=== PATIENT | male | born 1990 | race Caucasian/White ===

== ENCOUNTER 2018-11-13 14:33 | Outpatient (REF) | payer MEDICAID, SELFPAY ==
[2018-11-13 21:37] LABS: HCT 39.2 % (40.0-50.0); Mean Corp. HGB Concentration 33.2 g/dL (32.0-36.0); Mean Corpuscular Hemoglobin 30.3 pg (27.0-33.0); Mean Corpuscular Volume 91.4 fL (80-95); Mean Platelet Volume 10.4 fL (8.0-11.0); Platelet Count 253 x1000/uL (130-400); RBC 4.29 m/cumm (4.50-6.00); RBC Distribution Width 13.7 % (11.8-14.1)
[2018-11-13 21:46] LABS: ALT 21 U/L (12-78); AST 16 U/L (15-37); Albumin 3.5 g/dL (3.4-5.0); Alkaline Phosphatase 83 U/L (46-116); BUN 10 mg/dL (7-18); Bilirubin, Total 0.2 mg/dL (0.2-1.0); CREATININE 0.89 mg/dL (0.70-1.30); Calcium 8.7 mg/dL (8.5-10.1); Chloride 102 mmol/L (98-107); Glucose 120 mg/dL (70-100); Potassium 4.4 mmol/L (3.5-5.1); Sodium 139 mmol/L (136-145); Total Protein 7.2 g/dL (6.4-8.2)
[2018-11-15 11:22] LABS: Hepatitis C Ab w Rflx HCV PCR Reactive (NEGAT)
[2018-11-18 14:57] LABS: HCV RNA Detection Quantitative 104 IU/mL (UNDECT)
== END 2018-11-13 14:53 ==
LOC: NCHCN 14:33
PROVIDERS: PCP Nurse Practitioner Family; Visit Provider Specialist/Technologist Athletic Trainer
DX: Z11.59 Encounter for screening for other viral diseases (principal)
CPT/HCPCS: 80053; 85027; 86803; 87522

== ENCOUNTER 2019-01-24 18:06 | Emergency (ER) | payer MEDICARE, MEDICAID, SELFPAY ==
[2019-01-24 18:11] VITALS: BP 130/83; PULSE 91; RESP 18; TEMP 36.7; O2SAT 96
--- NOTE | 2019-01-24 18:33 | DI.RAD_ITS ---
EXAM: XR CHEST 2V PA LATERAL INDICATION: cough. TECHNIQUE: 2D digital imaging was performed. FINDINGS: A region of infiltration involving the right middle lobe is demonstrated. The lungs are otherwise cl ear. There is no pleural effusion. IMPRESSION: Findings consistent with an acute pneumonitis. Follow-up images to clearing is recommended.
--- NOTE | 2019-01-24 18:34 | W.ED.GENAD ---
Discharge Plan Disposition Patient Disposition: HOME Condition: Stable Discharge Details Chief Complaint: RespSymp Clinical Impression: Pneumonia Primary Care Provider: Galina Webb ED Provider: Jacqueline Saez Home Meds and New Rx's Prescriptions: New doxycycline hyclate 100 mg capsule 100 mg PO BID Qty: 20 RF: 0 albuterol sulfate [Proventil HFA] 90 mcg/actuation HFA aerosol inhaler 2 puff IH Q6H PRN (Reason: shortness of breath or wheezing) Qty: 8.5 RF: 0 benzonatate [Tessalon Perles] 100 mg capsule 100 mg PO BID PRN (Reason: cough) Qty: 10 RF: 0 Continued methadone (bulk) 100 GM powder 120 gm Miscellaneous DAILY RF: 0 albuterol sulfate [Ventolin HFA] 8 GM HFA aerosol inhaler 1 - 2 puff Inhalation Q4H PRN Qty: 1 RF: 1 (DME) inhalational spacing device [Space Chamber Plus] 1 EACH spacer 1 unit Miscellaneous Use with inhaler Qty: 1 RF: 0 azithromycin 250 MG tablet 250 mg PO 2 on day #1 then 1qd Qty: 6 RF: 0 prednisone 20 MG tablet 40 mg PO DAILY Qty: 10 RF: 0 albuterol sulfate 2.5 MG/0.5 ML solution for nebulization 2.5 mg Inhalation Q4H PRN Qty: 30 RF: 3 divalproex [Depakote] 125 MG tablet,delayed release (DR/EC) 2 tab PO DAILY RF: 0 dexmethylphenidate [Focalin XR] 10 MG capsule,ER biphasic 50-50 10 mg PO DAILY RF: 0 penicillin V potassium 500 MG tablet 500 mg PO Q6H Qty: 28 RF: 0 ibuprofen 600 MG tablet 600 mg PO Q6H PRN (Reason: Pain) Qty: 12 RF: 0 Discharge Instructions Instructions: Pneumonia (ED) Additional Instructions: Push fluids by mouth. Rest activities as tolerated. Use antibiotic as prescribed. Use inhaler as prescribed. Cough medication as needed. Follow-up with your primary care doctor in 3 days. Return for any worsening, concerns or alarming symptoms sooner if needed Medical Decision Making 28-year-old patient with a history of drug abuse currently on methadone with a reported history of pulmonary injury and vocal cord injury at . Presents for 2 days of cough, congestion and concern of respiratory infection. Patient reports nasal congestion, sore throat and cough. Denies measured fever. Reports wheezing. Has been using his inhaler but was out yesterday. Patient reports increasing wheezing today without inhaler. Patient ultimately is concerned with possibility of pneumonia. Chest x-ray ordered Chest x-ray does not fact reveal a right middle lobe infiltrate suggestive of pneumonia. Patient did receive 2 DuoNeb's in the emergency room and does feel improved after 2 DuoNeb's. Patient's O2 sat maintained. Patient feels appropriate for outpatient discharge. Patient was given initial dose of doxycycline in the emergency room prior to discharge. Patient also provided prescriptions for doxycycline, inhaler and cough medication. Patient encouraged close follow-up with primary care doctor and return for any alarming symptoms, worsening or concerns sooner if needed HPI General Date/Time Provider Initiated Documentation: 01/24/19 18:23. HPI Narrative: Patient presents for complaints of cough and congestion for the last 2 days. Patient reports nasal congestion, sore throat and coughing. Denies any fever. Patient reports cough with mild production. Out of his inhaler yesterday. Is concerned that he needs a new inhaler. Patient denies abdominal pain. He reports concern as he has chronic right lung issues. Patient is a smoker. Patient denies any other concerns or complaints. No voice change or trismus. Related Data Home Medications Medication Instructions Recorded Confirmed divalproex [Depakote] 2 tab PO DAILY 09/21/13 12/08/16 albuterol sulfate [Ventolin HFA] 1 - 2 puff INHALATION Q4H PRN #1 07/05/15 inhaler inhalational spacing device [Space #1 07/05/15 Chamber Plus] methadone (bulk) 120 gm MISCELLANEOUS DAILY 07/05/15 12/08/16 dexmethylphenidate [Focalin XR] 10 mg PO DAILY 11/18/15 12/08/16 albuterol sulfate 2.5 mg INHALATION Q4H PRN #30 vial 03/31/16 azithromycin 250 mg PO 2 on day #1 then 1qd #6 03/31/16 tab prednisone 40 mg PO DAILY #10 tab-cap 03/31/16 ibuprofen 600 mg PO Q6H PRN #12 tablet 12/08/16 penicillin V potassium 500 mg PO Q6H #28 tablet 12/08/16 albuterol sulfate [Proventil HFA] 2 puff IH Q6H PRN #8.5 gm 01/24/19 benzonatate [Tessalon Perles] 100 mg PO BID PRN #10 cap 01/24/19 doxycycline hyclate 100 mg PO BID #20 cap 01/24/19 Previous Rx's Medication Instructions Recorded ibuprofen 600 mg PO Q6H PRN #12 tablet 12/08/16 penicillin V potassium 500 mg PO Q6H #28 tablet 12/08/16 albuterol sulfate [Proventil HFA] 2 puff IH Q6H PRN #8.5 gm 01/24/19 benzonatate [Tessalon Perles] 100 mg PO BID PRN #10 cap 01/24/19 doxycycline hyclate 100 mg PO BID #20 cap 01/24/19 Allergies Allergy/AdvReac Type Severity Reaction Status Date / Time venom-honey bee Allergy Severe Anaphylaxsi Unverified 01/24/19 18:26 [bee venom (honey bee)] s General Stated Complaint: RespSymp ROXANNA: 4 Review of Systems Review of Systems Narrative: CONSTITUTIONAL: The patient denies fevers, chills. EYES: Denies vision changes, blurry vision, or eye pain. ENT: Denies hearing changes, tinnitus, vertigo, sore throat. CARDIAC: Denies dizziness. Mild right chest pain. RESPIRATORY: Cough with occasional sputum. Mild wheezing. GASTROINTESTINAL: Denies abdominal pain, changes in bowel, vomiting or nausea. GENITOURINARY: Denies dysuria, or frequency of urination. MUSCULOSKELETAL: Denies Joint pain, gait changes. NEUROLOGIC: Denies headaches, Denies focal weakness. Denies numbness. INTEGUMENT: Denies rashes. PSYCHIATRIC: Denies behavior changes. Denies anxiety or depression. ENDOCRINOLOGY: Denies fatigue. PSYCHIATRY: Denies depression, agitation or anxiety [facility] Medical History Asthma Hepatitis C History of sexually transmitted disease Hep C, chlamydia Illiteracy IV drug abuse Mental health disorder Bipolar ?schizophrenia Opiate dependence Tobacco use disorder Surgical History Knee Surgery, Right Family History Mother Diabetes Personal history of malignant neoplasm Spine? Father Substance abuse Alcoholism Diabetes Personal history of malignant neoplasm ??? Sister Mental disorder ADHD, bipolar Brother Mental disorder ADHD, bipolar Social History Smoking/Tobacco Use Status: Current every day Alcohol Intake: current Alcohol Intake frequency: a few times a month Alcohol type: hard liquor Drug use: Current Sobriety Substance use type: marijuana Details: daily marijuana/methadone clinic Do you feel safe in your relationship?: Yes Exam Narrative Exam Narrative: CONST: Thin, in no acute distress. Well hydrated. Alert and alert. HENMT: Head nomocephalic, normal to inspection. Atraumatic. Hearing grossly normal. EYES: General normal appearance. Alignment normal. Eyelids normal. Conjunctiva normal. NECK: Normal visual inspection. FROM. Trachea midline. No Midline tenderness. CHEST: Normal insepection of the chest. RESP: Normal respiratory effort. Speaking full sentences. Cough present. Mild wheezing.. No retractions. CARDIO: No JVD. MUSCULOSKELETAL: Normal Gait. FROM of all extremities. SKIN: Normal. Dry. No rashes. NEURO: Alert and awake. Speech clear. PSYCH: Normal affect. Cooperative. Course Vital Signs Vital signs: Vital Signs Temperature 36.7 C 01/24/19 18:11 Pulse 91 H 01/24/19 18:11 Respiratory Rate 18 01/24/19 18:11 Blood Pressure 130/83 01/24/19 18:11 Pulse Oximetry 96 01/24/19 18:11 Temperature 36.7 C 01/24/19 18:11 Temperature Source Tympanic 01/24/19 18:11 Pulse 91 H 01/24/19 18:11 Respiratory Rate 18 01/24/19 18:11 Blood Pressure 130/83 01/24/19 18:11 Blood Pressure Position Sitting 01/24/19 18:11 Pulse Oximetry 96 01/24/19 18:11 Oxygen Delivery Method Room Air 01/24/19 18:11 Oxygen Flow Rate 0 01/24/19 18:11 Pain Level 9 01/24/19 18:11
[2019-01-24 18:46] VITALS: RESP 8
[2019-01-24] MEDS: Albuterol/Ipratropium 3 ML UPD VIAL UPD (18:46)
[2019-01-24] MEDS: Doxycycline Hyclate 100 MG CAP PO (21:48)
== END 2019-01-24 22:00 | disposition home or self-care (01) ==
PROVIDERS: Emergency Provider Physician Assistant; PCP Nurse Practitioner Family
DX: J18.9 Pneumonia, unspecified organism (principal); F17.210 Nicotine dependence, cigarettes, uncomplicated
CPT/HCPCS: 94640; 99283; 71046; J7620

== ENCOUNTER 2019-05-27 02:41 | Outpatient (CLI) | payer MEDICARE, MEDICAID, SELFPAY | END 2019-05-27 03:01 | PROVIDERS: PCP Nurse Practitioner Family; Visit Provider Nurse Practitioner Family | DX: F11.20 Opioid dependence, uncomplicated (principal); Z79.899 Other long term (current) drug therapy | CPT/HCPCS: 93005; 93010 ==

== ENCOUNTER 2019-12-19 19:47 | Emergency (ER) | payer MEDICARE, MEDICAID, SELFPAY ==
[2019-12-19 19:53] VITALS: BP 131/75; PULSE 115; RESP 20; TEMP 36.8; O2SAT 92
--- NOTE | 2019-12-19 20:15 | DI.RAD_ITS ---
EXAM: XR HAND LT COMPLETE CLINICAL HISTORY: trauma. TECHNIQUE: 2D digital imaging was performed. COMPARISON: ECG EKG from 05/27/2019 FINDINGS: There is a comminuted fracture of the distal aspect of the middle phalanx of the ring finger. The fr acture involves the articular surface. There is some displacement. No additional fractures are iden tified. There is a rounded density in the volar soft tissues of the 4th finger which appears to repr esent a foreign body. IMPRESSION: Comminuted intra-articular fracture of the middle phalanx of the ring finger. DATA REPOSITORY: RADIATION DOSE DELIVERED:
--- NOTE | 2019-12-19 20:23 | W.ED.GENAD ---
Discharge Plan Disposition Patient Disposition: HOME Condition: Good Discharge Details Chief Complaint: Laceration Clinical Impression: Open fracture of finger of left hand, Forehead laceration, Chin laceration, Laceration of lower leg, right Primary Care Provider: Galina Webb ED Provider: Andi Boles Meds and New Rx's Prescriptions: New cephalexin 500 mg tablet 500 mg PO QID Qty: 16 RF: 0 Continued methadone (bulk) 100 GM powder 120 gm Miscellaneous DAILY RF: 0 divalproex [Depakote] 125 MG tablet,delayed release (DR/EC) 2 tab PO DAILY RF: 0 ibuprofen 600 MG tablet 600 mg PO Q6H PRN (Reason: Pain) Qty: 12 RF: 0 gabapentin 300 mg capsule 300 mg PO TID RF: 0 Discharge Instructions Instructions: Laceration (ED), Finger Fracture (ED), Facial Laceration (ED) Additional Instructions: Do not scrub the glue off lacerations to your face. Avoid shaving the chin area until wound healed. Do not put any antibiotic ointment or Vaseline on the glue. Keep your leg laceration clean and dry. You may put antibiotic ointment on that. The sutures in your leg should come out in 10 to 14 days. Your finger has a significant fracture. X-rays suggest foreign body but I was unable to visualize or feel one. Skin has been approximated. You should try to leave the dressing and splint in place until follow-up with orthopedics on Sunday. Their office will contact you in the morning. Take antibiotic as directed to prevent infection. Use acetaminophen or ibuprofen for pain. Keep your hand elevated over the weekend. Return to ED for any signs of infection which include increasing pain, redness, swelling. Pay attention to the tips of your fingers as we discussed and return if any evidence of significant discoloration either duskiness or paleness. Referrals: Noman Claros MD [ [facility] STAFF PHYSICIAN] - Discharge Data Discharge Date/Time-TO BE ENTERED AT DEPARTURE: 12/19/19 22:45 Medical Decision Making Patient presenting with multiple injuries status post falling with his ladder. Contusion and lacerations to the head and face. No loss of consciousness. Neurologically intact. No spinal tenderness. No chest or abdominal tenderness. Does not need CT imaging. Laceration over the right ford without bony tenderness. Left ring finger with injury likely consistent with open fracture. This will need imaging. Tetanus updated. X-ray of the left hand reveals distal fracture of the mid phalanx ring finger into the DIP joint. There also appears to be a spherical foreign body. Case discussed with orthopedics, Dr. Claros, who did review films with me. Recommendations to update tetanus which was done, give 2 g of Ancef. Washout wound and closed skin, chris tape ring and long finger together, follow-up Sunday with him. Continue 5 days of cephalexin. Please see procedure notes. Briefly facial lacerations were fairly superficial. They were cleaned out and skin adhesive was used with good results. Leg laceration once anesthetized and explored reveals laceration down to the tibia. No fracture or foreign body appreciated. Deep suture placed to close periosteum. This ended up approximating the skin well. Required only 3 nylon sutures for closure. Digital block for ring finger done. Wound irrigated out with almost a liter of saline. I am unable to visualize or feel a spherical foreign body. Even with forcep exploration foreign body not discovered. Fracture definitely unstable. Two skin sutures placed to approximate wound. Xeroform dressing applied. Fingers chris taped together. Still seemed somewhat unstable to me so aluminum foam splint placed. IV was established. Antibiotic was given. Toradol was given. Patient sent back for x-ray of tib-fib. Confirmed no fracture or foreign body. Patient discharged with instructions to continue cephalexin, keep hand elevated, keep splint in place until follow-up with orthopedics. Return to ED for any sign of infection, discoloration of fingertips, other concerns or problems. HPI General Mode of arrival: ambulatory. Date/Time Provider Initiated Documentation: 12/19/19 20:08. Limitations to Documentation: no limitations. Information obtained by: patient and RN notes reviewed. HPI Narrative: Patient presents to ED with injury sustained when a ladder he was climbing fell with him on it. He did not actually fall off the ladder. He had locked himself out of his house and was trying to get to an upstairs window. His finger got caught up in the ladder and sustained injury. He has cut on his ford from where it caught the ladder as well. Small laceration and contusion on his head from striking it against a ladder. Never actually hit the ground. Denies loss of consciousness. Denies neck or back pain. Denies difficulty breathing or chest pain. No abdominal pain. No neurologic changes. Unaware of his last tetanus. Denies drugs or alcohol. Is right-hand dominant with injury to the left ring finger. Related Data Home Medications Medication Instructions Recorded Confirmed divalproex [Depakote] 2 tab PO DAILY 09/21/13 12/19/19 methadone (bulk) 120 gm MISCELLANEOUS DAILY 07/05/15 12/19/19 ibuprofen 600 mg PO Q6H PRN #12 tablet 12/08/16 12/19/19 cephalexin 500 mg PO QID #16 tab 12/19/19 gabapentin 300 mg PO TID 12/19/19 12/19/19 Previous Rx's Medication Instructions Recorded ibuprofen 600 mg PO Q6H PRN #12 tablet 12/08/16 cephalexin 500 mg PO QID #16 tab 12/19/19 Allergies Allergy/AdvReac Type Severity Reaction Status Date / Time venom-honey bee Allergy Severe Anaphylaxsi Unverified 01/24/19 18:26 [bee venom (honey bee)] s General Stated Complaint: Laceration ROXANNA: 3 Review of Systems Narrative: As documented in HPI otherwise negative as below. Const: no fever, chills, weakness Resp: no cough, SOB, pleuritic pain CV: no CP, diaphoresis, edema, syncope GI: no abdominal pain, nausea, vomiting, diarrhea Neuro: no headache, numbness, focal weakness, confusion PFSH Medical History Asthma Hepatitis C History of sexually transmitted disease Hep C, chlamydia Illiteracy IV drug abuse Mental health disorder Bipolar ?schizophrenia Opiate dependence Tobacco use disorder Surgical History Knee Surgery, Right Family History Mother Diabetes Personal history of malignant neoplasm Spine? Father Substance abuse Alcoholism Diabetes Personal history of malignant neoplasm ??? Sister Mental disorder ADHD, bipolar Brother Mental disorder ADHD, bipolar Social History Smoking/Tobacco Use Status: Current every day Tobacco Type: cigarettes Alcohol Intake: former Drug use: Daily Substance use type: marijuana Details: daily marijuana/methadone clinic Do you feel safe at home: Yes Do you feel safe in your relationship?: Yes Exam Narrative Exam Narrative: Vitals: Afebrile. A little tachycardic, likely anxiety. Saturations low 90s in smoker. Const: Extremely thin male in NAD. HEENT: NC. Contusion to left side of head. 1 cm superficial laceration above left eyebrow. No facial bony tenderness. 0.5 cm superficial laceration under left chin. Eyes: PERRL and EOMI. Neck: Supple. Trachea midline. No midline posterior C-spine tenderness. Lungs: Normal respiratory effort. No chest wall tenderness. Cor: RRR w/ good radial pulses. GI: Soft. NT/ND. No guarding or rebound. Back: No midline spinal tenderness. Neuro: A+O x 3. Normal speech, mentation, gait. Cranial nerves II - XII grossly intact. No gross motor or sensory deficit. Ext: No tenderness or deformity to the extremities except for left ring finger. This has laceration mid phalanx, radial side. Macerated skin at the base of finger. Tendons appear to be in tact but bony crepitus felt mid phalanx. Sensation intact. 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 Cap refill is good. Skin: Warm and dry. Few minor very superficial lacerations to left scalp. 1 cm shallow laceration above left eyebrow. 0.5 cm shallow laceration chin. 1 cm deep laceration left ring finger. 3 cm laceration to right ford anteriorly. Course Vital Signs Vital signs: Vital Signs Temperature 98.2 F 12/19/19 19:53 Pulse 115 H 12/19/19 19:53 Respiratory Rate 12/19/19 19:53 Blood Pressure 131/75 12/19/19 19:53 Pulse Oximetry 92 L 12/19/19 19:53 Temperature 98.2 F 12/19/19 19:53 Temperature Source Tympanic 12/19/19 19:53 Pulse 115 H 12/19/19 19:53 Respiratory Rate 12/19/19 19:53 Respiratory Effort 12/19/19 19:55 Blood Pressure 131/75 12/19/19 19:53 Pulse Oximetry 92 L 12/19/19 19:53 Oxygen Delivery Method Room Air 12/19/19 19:53 Oxygen Flow Rate 0 12/19/19 19:53 Pain Level 10 12/19/19 19:53 Procedures Laceration Laceration 1: Site: face Side (If applicable): left Size (cm): 1 Description: linear Depth: simple, single layer Pre-repair: wound explored and irrigated extensively Skin layer closed with: other (skin adhesive) Laceration 2: Site: face Side (If applicable): left Size (cm): 0.5 Description: linear Depth: simple, single layer Pre-repair: wound explored and irrigated extensively Skin layer closed with: other (skin adhesive) Laceration 3: Site: lower extremity Side (If applicable): right Size (cm): 3 Description: linear Depth: involves muscle layer Local Anesthetic: Lidocaine 1% and with Epi Amount of anesthesia used (mL): 2.5 Pre-repair: wound explored and irrigated extensively Skin layer closed with: nylon Size (cm): 3-0 Number of sutures: 3 Technique: simple, interrupted Muscle layer closed with: vicryl Size: 6-0 Number of sutures: 1 Laceration 4: Site: hand Side (If applicable): left Size (cm): 1 Description: irregular Depth: simple, single layer Pre-repair: wound explored and irrigated extensively Skin layer closed with: nylon Size (cm): 5-0 Number of sutures: 2 Technique: simple, interrupted Nerve Block Nerve Block 1: Local Anesthetic: Lidocaine 1% Amount of anesthesia used (mL): 3 Side: left Nerve Blocks: digital Procedure Successful: Yes Patient Tolerated Procedure: well Complications: inadequate anesthesia
--- NOTE | 2019-12-19 20:49 | DI.VRAD_ITS ---
PROCEDURE INFORMATION: Exam: XR Left Hand Exam date and time: 12/19/2019 8:40 PM Age: 29 years old Clinical indication: Other: Trauma; Additional info: Fell off ladder, ladder landed on hand TECHNIQUE: Imaging protocol: XR Left hand. Views: 3 or more views. COMPARISON: No relevant prior studies available. FINDINGS: Bones/joints: There is a fracture of the distal aspect of the middle phalanx 4th digit. There is marked comminution and ulnar angulation. There is involvement of the articular surface although grossly the joint space appears intact. There appears to be a radiopaque focus within the soft tissues, possible foreign body. Soft tissues: See Bones/joints finding. IMPRESSION: Comminuted fracture distal aspect middle phalanx 4th digit. Foreign body in the adjacent soft tissues not excludable. Dictated and Authenticated by: Elizabeth Reis MD. Ordering:TUTU Escamilla MD
[2019-12-19] MEDS: Ketorolac 30 MG/ML VIAL IVP (22:02)
[2019-12-19] MEDS: ceFAZolin 2 GM/50 ML BAG IVPB (22:02)
--- NOTE | 2019-12-19 22:33 | DI.RAD_ITS ---
EXAM: XR TIB/FIB RT CLINICAL HISTORY: trauma. TECHNIQUE: 2D digital imaging was performed. COMPARISON: No exams were available for comparison FINDINGS: BONES: No acute fracture is present. No bony destructive lesion is seen. Visualized portion of knee a nd ankle joints are unremarkable. SOFT TISSUE: There is a small amount of air seen in the medial soft tissues of the proximal lower leg . IMPRESSION: Laceration. No evidence of foreign body or fracture. DATA REPOSITORY: RADIATION DOSE DELIVERED:
--- NOTE | 2019-12-19 22:42 | DI.VRAD_ITS ---
PROCEDURE INFORMATION: Exam: XR Right Tibia and Fibula Exam date and time: 12/19/2019 10:32 PM Age: 29 years old Clinical indication: Injury or trauma; Fall; Work related; Initial encounter; Laceration; Lower leg; Right; Without foreign body; Injury date: 12/19/19; Injury details: S/P stiches TECHNIQUE: Imaging protocol: XR Right tibia and fibula. Views: 2 views. COMPARISON: No relevant prior studies available. FINDINGS: Bones/joints: Normal. Soft tissues: Normal. IMPRESSION: No evidence for acute posttraumatic abnormality. Dictated and Authenticated by: Elizabeth Reis MD. Ordering:TUTU Escamilla MD
== END 2019-12-19 22:45 | disposition home or self-care (01) ==
PROVIDERS: Emergency Provider Emergency Medicine; PCP Nurse Practitioner Family
DX: S62.625B Displaced fracture of middle phalanx of left ring finger, initial encounter for open fracture (principal); S01.81XA Laceration without foreign body of other part of head, initial encounter; S81.811A Laceration without foreign body, right lower leg, initial encounter; S00.01XA Abrasion of scalp, initial encounter; W11.XXXA Fall on and from ladder, initial encounter
CPT/HCPCS: 12001; 12011; 12032; 29125; 90471; 96365; 96375; 99284; 73130; 73590; 99282; J0690; J1885

== ENCOUNTER → 2019-12-23 12:23 | Outpatient (BNVA) | payer MEDICARE, MEDICAID, SELFPAY | PROVIDERS: PCP Nurse Practitioner Family; Referring Provider Nurse Practitioner Family; Visit Provider Student in an Organized Health Care Education/Training Program | DX: R69 Illness, unspecified (principal) ==

== ENCOUNTER 2019-12-31 07:38 | Emergency (ER) | payer MEDICARE, MEDICAID, SELFPAY ==
--- NOTE | 2019-12-31 07:44 | NUR.NOTE ---
Pt decided to go to his primary, choose not to come into ER-per registration.Nursing Note:
== END 2019-12-31 07:45 | disposition other institution (70) ==
LOC: ER 07:43
PROVIDERS: PCP Nurse Practitioner Family
DX: Z53.21 Procedure and treatment not carried out due to patient leaving prior to being seen by health care provider (principal)

== ENCOUNTER 2020-01-11 16:14 | Emergency (ER) | payer MEDICARE, MEDICAID, SELFPAY ==
[2020-01-11 16:21] VITALS: BP 129/78; PULSE 95; RESP 16; TEMP 36.7; O2SAT 98
[2020-01-11 16:22] VITALS: BP 129/78; PULSE 90
--- NOTE | 2020-01-11 16:35 | W.ED.GENAD ---
Discharge Plan Disposition Patient Disposition: HOME Condition: Poor Discharge Details Chief Complaint: Orthopedic Clinical Impression: Necrotic wound of left hand Primary Care Provider: Galina Webb ED Provider: Loyda Ingram Home Meds and New Rx's Prescriptions: New cephalexin 500 mg tablet 500 mg PO QID Qty: 28 RF: 0 Continued methadone (bulk) 100 GM powder 120 gm Miscellaneous DAILY RF: 0 divalproex [Depakote] 125 MG tablet,delayed release (DR/EC) 2 tab PO DAILY RF: 0 ibuprofen 600 MG tablet 600 mg PO Q6H PRN (Reason: Pain) Qty: 12 RF: 0 gabapentin 300 mg capsule 300 mg PO TID RF: 0 Discharge Instructions Instructions: Finger Fracture (ED) Additional Instructions: Take antibiotics as prescribed Can use acetaminophen and/or ibuprofen as directed for pain Please keep your follow-up appointment with orthopedics as this will be very important to avoid more serious complications such as sepsis. Referrals: Toño Lincoln MD [ [facility] STAFF PHYSICIAN] - (On Monday January 13, 2020) Discharge Data Discharge Date/Time-TO BE ENTERED AT DEPARTURE: 01/11/20 18:36 Medical Decision Making Patient with a fracture of his left middle phalanx ring finger into the DIP joint of his fourth digit repaired here in the emergency department December 18 who was placed on antibiotics and recommended to follow-up with orthopedics which she did not do. Presents with necrotic finger. He has had no fevers or signs of sepsis. IV established draw CBC CMP given 2 g IV Ancef. Will consult orthopedics. labs reviewed with no signs of sepsis. Case was discussed with Dr. Lincoln with recommendations for antibiotics and follow-up. Patient will be advised to follow-up first thing Sunday morning or return sooner for new or worsening symptoms. Medical Records Medical records reviewed: Yes I reviewed the patient's medical records. Lab Data Lab results reviewed: Yes I reviewed the patient's lab results. Lab results narrative: Laboratory Tests Range/Units 01/11/20 01/11/20 16:30 16:30 WBC (4.4-10.8) 10^3/uL 8.23 RBC (4.36-5.78) 10^6/uL 4.35 L Hgb (13.5-17.5) g/dL 13.0 L Hct (40.0-50.0) % 40.4 MCV (80-95) fL 92.9 MCH (27.0-33.0) pg 29.9 MCHC (32.0-36.0) % 32.2 RDW (11.8-14.1) % 13.2 Plt Count (130-400) 10^3/uL 273 MPV (8.0-11.0) fL 8.9 Immature Gran % 0.2 Neutrophils % 42.0 Lymphocytes % 49.2 Monocytes % 5.1 Eosinophils % 2.8 Basophils % 0.7 Nucleated RBC % % 0 Absolute Neutrophils (1.2-6.7) 10^3/uL 3.45 Absolute Lymphocytes (1.2-3.4) 10^3/uL 4.05 H Absolute Monocytes (0.1-0.8) 10^3/uL 0.42 Absolute Eosinophils (0.0-0.7) 10^3/uL 0.23 Absolute Basophils (0.0-0.2) 10^3/uL 0.06 Sodium (136-145) mmol/L 137 Potassium (3.5-5.1) mmol/L 4.3 Chloride (98-107) mmol/L 99 Carbon Dioxide (21.0-32.0) mmol/L 32.4 H Anion Gap (3-11) mmol/L 5.6 BUN (7-18) mg/dL 8 Creatinine (0.70-1.30) mg/dL 1.00 Estimated GFR/1.73 m2 (mL/min/1.73m2) >= 60.00 Glucose (74-106) mg/dL 111 H Calcium (8.5-10.1) mg/dL 8.9 Total Bilirubin (0.2-1.0) mg/dL 0.4 AST (15-37) U/L 34 ALT (16-63) U/L 20 Alkaline Phosphatase (46-116) U/L 80 Total Protein (6.4-8.2) g/dL 7.6 Albumin (3.4-5.0) g/dL 3.6 HPI General Date/Time Provider Initiated Documentation: 01/11/20 16:22. Information obtained by: patient. HPI Narrative: This is a 29-year-old male patient with a past medical history significant for IV drug abuse hep C on methadone who presents to the emergency department after missing follow-up appointments for fractured finger status post repair on December 18. He had received 2 g of IV cefazolin and discharged on Keflex and was supposed to follow-up with orthopedics for follow-up of his open fracture of his left fourth digit the patient reports the day after the repair his finger did become dusky and soon started turning blackish but he did not seek follow-up as he was busy working he denies any fever chills states that the finger is painful and that is what has prompted his visit today. Related Data Home Medications Medication Instructions Recorded Confirmed divalproex [Depakote] 2 tab PO DAILY 09/21/13 01/11/20 methadone (bulk) 120 gm MISCELLANEOUS DAILY 07/05/15 01/11/20 ibuprofen 600 mg PO Q6H PRN #12 tablet 12/08/16 01/11/20 gabapentin 300 mg PO TID 12/19/19 01/11/20 cephalexin 500 mg PO QID #28 tab 01/11/20 Previous Rx's Medication Instructions Recorded ibuprofen 600 mg PO Q6H PRN #12 tablet 12/08/16 cephalexin 500 mg PO QID #28 tab 01/11/20 Allergies Allergy/AdvReac Type Severity Reaction Status Date / Time venom-honey bee Allergy Severe Anaphylaxsi Unverified 01/11/20 16:26 [bee venom (honey bee)] s General Stated Complaint: Orthopedic ROXANNA: 3 Review of Systems Constitutional Constitutional: Denies fever(s) ENT Ears, Nose, Mouth, and Throat: Denies dizziness Cardiovascular Cardiovascular: Denies chest pain and Denies dyspnea Respiratory Respiratory: Denies cough and Denies dyspnea Gastrointestinal Gastrointestinal: Denies nausea Musculoskeletal Musculoskeletal: Reports arthralgias and Reports joint swelling Comments: Necrosis from the PIP joint distally, Integumentary/Breasts Skin/Breast: Reports rash (necrosis and swelling to left fourth digit. ) Neurologic Neurologic: Denies dizziness [facility] Medical History (Updated 01/11/20 @ 18:20 by Loyda Ingram NP) Asthma Hepatitis C History of sexually transmitted disease Hep C, chlamydia Illiteracy IV drug abuse Mental health disorder Bipolar ?schizophrenia Opiate dependence Tobacco use disorder Surgical History Knee Surgery, Right Family History Mother Diabetes Personal history of malignant neoplasm Spine? Father Substance abuse Alcoholism Diabetes Personal history of malignant neoplasm ??? Sister Mental disorder ADHD, bipolar Brother Mental disorder ADHD, bipolar Social History Smoking/Tobacco Use Status: Current every day Tobacco Type: cigarettes Alcohol Intake: former Drug use: Daily Substance use type: marijuana Details: daily marijuana/methadone clinic Do you feel safe at home: Yes Do you feel safe in your relationship?: Yes Exam Const General: cooperative, no acute distress, disheveled, frail appearing and ill appearing chronically Nutritional Appearance: cachectic (Older appearing than stated age) Cardio Rate: regular rate Rhythm: regular rhythm Skin Rashes: rashes noted (Fourth digit left hand with mild swelling and necrosis PIP joint distally) Neuro General: patient alert, patient awake and patient oriented x3 Psych Insight: poor Judgment: poor Course Vital Signs Vital signs: Vital Signs Temperature 36.7 C 01/11/20 16:21 Pulse 95 H 01/11/20 16:21 Respiratory Rate 16 01/11/20 16:21 Blood Pressure 129/78 01/11/20 16:21 Pulse Oximetry 98 01/11/20 16:21 Temperature 36.7 C 01/11/20 16:21 Temperature Source Skin 01/11/20 16:21 Pulse 95 H 01/11/20 16:21 Respiratory Rate 16 01/11/20 16:21 Respiratory Effort Non-Labored 01/11/20 16:24 Blood Pressure 129/78 01/11/20 16:21 Blood Pressure Position Sitting 01/11/20 16:21 Pulse Oximetry 98 01/11/20 16:21 Oxygen Delivery Method Room Air 01/11/20 16:21 Oxygen Flow Rate 0 01/11/20 16:21 Pain Level 8 01/11/20 16:21
[2020-01-11 16:39] LABS: Abs Immature Grans 0.02 10^3/uL (0.0-0.06); Absolute Basophil Count 0.06 10^3/uL (0.0-0.2); Absolute Eosinophil Count 0.23 10^3/uL (0.0-0.7); Absolute Lymphocyte Count 4.05 10^3/uL (1.2-3.4); Absolute Monocyte Count 0.42 10^3/uL (0.1-0.8); Absolute Neutrophil Count 3.45 10^3/uL (1.2-6.7); Basophils % 0.7; Eosinophils % 2.8; HCT 40.4 % (40.0-50.0); Immature Grans % 0.2; Lymphocytes % 49.2; MCH 29.9 pg (27.0-33.0); MCHC 32.2 % (32.0-36.0); MCV 92.9 fL (80-95); MPV 8.9 fL (8.0-11.0); Monocytes % 5.1; Nucleated RBC 0 %; Platelet Count 273 10^3/uL (130-400); RBC 4.35 10^6/uL (4.36-5.78); RDW 13.2 % (11.8-14.1); RDW-SD 45.5 fL; WBC 8.23 10^3/uL (4.4-10.8)
[2020-01-11 17:01] LABS: ALT 20 U/L (16-63); AST 34 U/L (15-37); Albumin 3.6 g/dL (3.4-5.0); Alkaline Phosphatase 80 U/L (46-116); Anion Gap 5.6 mmol/L (3-11); BUN 8 mg/dL (7-18); Bilirubin, Total 0.4 mg/dL (0.2-1.0); CO2 32.4 mmol/L (21.0-32.0); Calcium 8.9 mg/dL (8.5-10.1); Chloride 99 mmol/L (98-107); Glucose 111 mg/dL (74-106); Potassium 4.3 mmol/L (3.5-5.1); Sodium 137 mmol/L (136-145); Total Protein 7.6 g/dL (6.4-8.2)
[2020-01-11] MEDS: ceFAZolin 2,000 MG in Normal Saline 100 ML 200 MG IVPB (17:05)
[2020-01-11] MEDS: Ketorolac 15 MG/ML VIAL IVP (17:12)
--- NOTE | 2020-01-11 18:20 | NUR.NOTE ---
Nursing Note: Referral to Care Management to be sure that the patient does follow up with Ortho on SundayJanuary 12. Nallely Pearl
[2020-01-11 18:24] VITALS: O2SAT 90
[2020-01-11 18:25] VITALS: BP 110/64; PULSE 68
[2020-01-11 18:26] VITALS: BP 110/64; PULSE 68; RESP 18; O2SAT 97
== END 2020-01-11 18:36 | disposition home or self-care (01) ==
PROVIDERS: Emergency Provider Nurse Practitioner Acute Care; PCP Nurse Practitioner Family
DX: S61.205A Unspecified open wound of left ring finger without damage to nail, initial encounter (principal); X58.XXXA Exposure to other specified factors, initial encounter; Z91.19 Patient's noncompliance with other medical treatment and regimen
CPT/HCPCS: 80053; 96365; 96375; 99284; 85025; J0690; J1885

== ENCOUNTER 2020-01-13 12:10 | Outpatient (CLI) | payer MEDICARE, MEDICAID, SELFPAY ==
--- NOTE | 2020-01-13 12:00 | DI.RAD_ITS ---
EXAM: XR FINGER LT RING INDICATION: left ring finger fx. COMPARISON: CR,XR XR HAND LT COMPLETE from 12/19/2019 TECHNIQUE: 2D digital imaging was performed. FINDINGS: A comminuted intra-articular fracture of the distal aspect of the middle phalanx of the ring finger i s again noted. The alignment appears unchanged. The previously noted small soft tissue foreign body has been removed. IMPRESSION: Stable fracture of the middle phalanx. DATA REPOSITORY: RADIATION DOSE DELIVERED:
== END 2020-01-13 12:30 ==
PROVIDERS: PCP Nurse Practitioner Family; Referring Provider Nurse Practitioner Family; Visit Provider Orthopaedic Surgery
DX: S62.625A Displaced fracture of middle phalanx of left ring finger, initial encounter for closed fracture (principal); S61.402A Unspecified open wound of left hand, initial encounter; I96 Gangrene, not elsewhere classified; S81.811A Laceration without foreign body, right lower leg, initial encounter; W11.XXXA Fall on and from ladder, initial encounter
CPT/HCPCS: 99203; 99214; 73140

== ENCOUNTER 2020-04-20 09:34 | Emergency (ER) | payer MEDICARE, MEDICAID, SELFPAY ==
[2020-04-20 09:38] VITALS: BP 123/79; PULSE 87; RESP 17; TEMP 36.3; O2SAT 95
--- NOTE | 2020-04-20 09:43 | W.ED.GENAD ---
Discharge Plan Disposition Patient Disposition: HOME Condition: Stable Discharge Details Clinical Impression: Eye redness Primary Care Provider: Galina Webb ED Provider: Cheyanne Concepcion Home Meds and New Rx's Prescriptions: Continued methadone (bulk) 100 GM powder 130 gm Miscellaneous DAILY RF: 0 gabapentin 300 mg capsule 300 mg PO TID RF: 0 Discharge Instructions Instructions: Erythromycin (Into the eye), Conjunctivitis (ED) Additional Instructions: Please return immediately to the emergency department if you develop any new or worsening symptoms, if your condition does not improve as expected, or if you become otherwise concerned. It is extremely important that you call soon as possible to make an appointment to be seen in follow-up for this visit by your PCP and by [facility] in [facility]. Please use 0.5 inches of the erythromycin antibiotic ointment that was provided to you to the inner lower lid of your right eye 4 times a day for 5 days. Stand Alone Forms: Work Release Referrals: Galina Webb, GOVERNMENT AFFAIRS MANAGER [Primary Care Provider] - Discharge Data Discharge Date/Time-TO BE ENTERED AT DEPARTURE: 04/20/20 10:15 Medical Decision Making Karl Dela Cruz is a 30-year-old man without reported history of medical problems presenting to the emergency department with eye redness yesterday, no eye pain, no visual changes. On exam patient is well and nontoxic-appearing. The right conjunctive is injected, there are no other abnormalities of the eyes or face. Fluorescein staining reveals no uptake. Exam/history at this time is not consistent with foreign body, significant trauma to the eye, corneal abrasion, herpetic infection, glaucoma, iritis life/vision threatening emergencies. Concern for bacterial/viral conjunctivitis. Plan for erythromycin. I had a lengthy discussion with Patient regarding return to emergency department precautions, home care, and importance of outpatient follow-up. Pt verbalizes understanding of the plan and is amenable. Patient discharged to home with clear plan for outpatient follow-up. All questions were answered. Disposition decision was made weighing the risks and benefits of hospitalization versus outpatient treatment, the risk for further decompensation, and the patient's wishes. Patient requested work note stating that he has been diagnosed with conjunctivitis and likely infectious period. This was provided to the patient. Medical Records Medical records reviewed: Yes I reviewed the patient's medical records. HPI General Mode of arrival: ambulatory. Date/Time Provider Initiated Documentation: 04/20/20 09:36. Limitations to Documentation: no limitations. Information obtained by: patient, RN notes reviewed and old records reviewed. HPI Narrative: Karl Dela Cruz is a 30-year-old man without reported history of medical problems presenting to the emergency department with right eye. Patient reports that yesterday prior to going to work, he noticed a mild gritty sensation as if he had something in his right eye. He also noticed that his eye was watering. Patient reports that foreign body sensation resolved within an hour or so. Patient reports that watery discharge persisted yesterday, and this morning he noticed that his eye was red. Patient reports that his boss sent him to the emergency department for evaluation of his right eye. 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 He denies eye pain, discharge other than tearing, visual changes. He denies any symptoms to the left eye. He denies any pain, fevers, vomiting, diarrhea, rash. Feels otherwise well in his usual state of health. Related Data Home Medications Medication Instructions Recorded Confirmed methadone (bulk) 130 gm MISCELLANEOUS DAILY 07/05/15 01/13/20 gabapentin 300 mg PO TID 12/19/19 01/13/20 Allergies Allergy/AdvReac Type Severity Reaction Status Date / Time venom-honey bee Allergy Severe Anaphylaxsi Unverified 04/20/20 09:44 [bee venom (honey bee)] s General Stated Complaint: EyeProblem ROXANNA: 4 Review of Systems Narrative: Constitutional: denies fevers Eyes: denies eye pain, visual changes, reports right eye redness and increased tearing ENT: denies ear pain, dental pain, sore throat Cardiovascular: denies chest pain Respiratory: denies SOB, cough GI: denies abdominal pain, vomiting, diarrhea : denies flank pain MSK: denies back pain, neck pain, arthralgias, myalgias Skin: denies rash Neuro: denies headaches, numbness, weakness PFSH Medical History Asthma Hepatitis C History of sexually transmitted disease Hep C, chlamydia Illiteracy IV drug abuse Mental health disorder Bipolar ?schizophrenia Opiate dependence Tobacco use disorder Surgical History Knee Surgery, Right Family History Mother Diabetes Personal history of malignant neoplasm Spine? Father Substance abuse Alcoholism Diabetes Personal history of malignant neoplasm ??? Sister Mental disorder ADHD, bipolar Brother Mental disorder ADHD, bipolar Social History Smoking/Tobacco Use Status: Current every day Tobacco Type: cigarettes Smoking risk assessment performed?: Yes Alcohol Intake: current Alcohol Intake frequency: holidays/special occasions only Alcohol type: hard liquor Drug use: Daily Substance use type: marijuana Details: daily marijuana/methadone clinic Do you feel safe at home: Yes Do you feel safe in your relationship?: Yes Exam Narrative Exam Narrative: Constitutional: well and [id number], pleasant, conversing normally HENT: head atraumatic/normocephalic/normal inspection, mucous membranes moist. No facial rash or swelling. Eyes: Right conjunctiva injected diffusely, no apparent foreign body, no fluorescein uptake upon staining, extraocular movements intact and painless, left conjunctiva normal/sclera normal, pupils 3mm b/l, no periorbital edema/erythema/skin changes. Neck: no stridor, normal ROM, trachea midline Resp: normal work of breathing, speaking in full sentences Cardio: normal rate, normal rhythm Skin: warm, dry, normal color, no rash Neuro: alert, not altered, grossly non-focal, normal tone Ext: Moving all extremities equally Psych: normal mood, normal affect, normal behavior Course Vital Signs Vital signs: Vital Signs Temperature 36.3 C L 04/20/20 09:38 Pulse 87 04/20/20 09:38 Respiratory Rate 17 04/20/20 09:38 Blood Pressure 123/79 04/20/20 09:38 Pulse Oximetry 95 04/20/20 09:38 Temperature 36.3 C L 04/20/20 09:38 Temperature Source Temporal Artery Scan 04/20/20 09:38 Pulse 87 04/20/20 09:38 Respiratory Rate 17 04/20/20 09:38 Blood Pressure 123/79 04/20/20 09:38 Blood Pressure Position Sitting 04/20/20 09:38 Pulse Oximetry 95 04/20/20 09:38 Oxygen Delivery Method Room Air 04/20/20 09:38 Oxygen Flow Rate 0 04/20/20 09:38 Pain Level 0 04/20/20 09:38
[2020-04-20] MEDS: Fluorescein STRIPS 100/BOX 1 MG OP (09:56)
[2020-04-20] MEDS: Tetracaine 0.5% 4 ML BTL (09:57)
[2020-04-20] MEDS: Erythromycin Ophth Oint 3.5 GM TUBE OD (10:11)
== END 2020-04-20 10:15 | disposition home or self-care (01) ==
PROVIDERS: Emergency Provider Student in an Organized Health Care Education/Training Program; PCP Nurse Practitioner Family
DX: H57.89 Other specified disorders of eye and adnexa (principal); H10.31 Unspecified acute conjunctivitis, right eye
CPT/HCPCS: 99283

== ENCOUNTER 2022-01-09 20:33 | Emergency (ER) | payer MEDICARE, MEDICAID, SELFPAY ==
[2022-01-09 20:50] VITALS: BP 116/61; PULSE 90; RESP 18; TEMP 36.8; O2SAT 93
--- NOTE | 2022-01-09 21:29 | ED.GENADUL_ITS ---
Discharge Plan Disposition Patient Disposition: HOME Condition: Stable Discharge Details Clinical Impression: Pneumonia Primary Care Provider: Galina Webb ED Provider: Karl Adkins Home Meds and New Rx's Prescriptions: New doxycycline hyclate 100 mg tablet 100 mg PO BID 5 Days Qty: 10 0RF Continued methadone (bulk) 100 GM powder 130 gm Miscellaneous DAILY Label Comments: [facility] Rx Instructions: BAART. Mixed with water albuterol sulfate 90 mcg/actuation HFA aerosol inhaler 2 puff inhalation Q6H PRN Discharge Instructions Instructions: Pneumonia (ED) Additional Instructions: Please take medication as prescribed and if you have any new or significant worsening of your symptoms return to the emergency department immediately. If not seeing signs of improvement in the next 3 days please follow-up with your primary care provider for reassessment. Stay well-hydrated and get plenty of rest. You may also continue use [id number] medications as needed for symptoms. Stand Alone Forms: Work Release Referrals: Galina Webb, JAPANESE INTERPRETER [Primary Care Provider] - (If not improving in the next 3 days please contact your primary care provider for arrangement of follow-up appointment.) Discharge Data Discharge Date/Time-TO BE ENTERED AT DEPARTURE: 01/09/22 21:39 Medical Decision Making Patient presenting to the emergency department for chief complaint of worsening cough. Patient reports that tentatively developed he began having cold-like symptoms that were tampered and typical of viral illness. Then over the past couple days he is noted increased cough some right-sided chest pain. He also endorses some increased malaise. Vital signs are stable and physical exam does reveal a slight focal wheeze that is appreciated in the right lower lung exam is otherwise unremarkable. Given patient's reported history and worsening symptoms I am concerned for pneumonia. We will start patient on doxycycline and discussed with patient monitoring of symptoms with return precautions for any worsening. At this time do not feel that any other testing is needed. After discussion of diagnosis and plan of care patient has no further needs, questions, or concerns and states clear understanding to return to the emergency department for any worsening symptoms. This documentation was generated using [employer] system, please disregard any oddities of phrase or misspellings. HPI General Mode of arrival: ambulatory . Date/Time Provider Initiated Documentation: 01/09/22 21:14 . Limitations to Documentation: no limitations . Information obtained by: patient and RN notes reviewed . History of Present Illness 31 year old M presents to the emergency department with the chief complaint of Worsening cough, described as moderate, with intensity rated at 7. Quality is described as aching, and is localized to the chest. Patient reports no radiation. Patient started experiencing this day(s) (10) and it has been constant. No relieving factors improve symptom(s), No exacerbating factors reported . Patient notes denies shortness of breath. Patient did receive the following treatments prior to arrival, cold therapy Related Data Home Medications Medication Instructions Recorded Confirmed methadone (bulk) 100 % powder 130 gm miscellaneous DAILY 07/05/15 01/09/22 albuterol sulfate 90 mcg/actuation 2 puff inhalation Q6H PRN 11/18/20 01/09/22 aerosol inhaler doxycycline hyclate 100 mg tablet 100 mg PO BID 5 days #10 tabs 01/09/22 Previous Rx's Medication Instructions Recorded doxycycline hyclate 100 mg tablet 100 mg PO BID 5 days #10 tabs 01/09/22 Allergies Allergy/AdvReac Type Severity Reaction Status Date / Time venom-honey bee Allergy Severe Anaphylaxsi Unverified 01/09/22 20:53 [bee venom (honey bee)] s General Stated Complaint: RespSymp ROXANNA: 4 Review of Systems Constitutional Constitutional: Denies body ache(s), Reports chills, Denies fever(s), Denies headache(s) and Reports malaise Eyes Eyes: Denies eye discharge ENT Ears, Nose, Mouth, and Throat: Denies ear discharge, Denies otalgia, Denies headache(s), Reports nasal congestion, Denies nasal discharge, Denies neck pain, Denies sinus pain, Denies sinus pressure, Denies sore throat and Denies throat swelling Cardiovascular Cardiovascular: Reports chest pain (Right sided lateral and posterior) and Denies dyspnea Respiratory Respiratory: Reports as per HPI, Reports cough, Denies hemoptysis, Reports excessive phlegm production, Reports pain with cough and Denies dyspnea Gastrointestinal Gastrointestinal: Denies abdominal pain and Denies vomiting Musculoskeletal Musculoskeletal: Denies joint swelling and Denies neck pain Integumentary/Breasts Skin/Breast: Denies rash Neurologic Neurologic: Denies headache(s) Allergic/Immunologic Allergic/Immunologic: Denies throat swelling PFSH All Active Problems (Updated 01/09/22 @ 21:29 by Karl Adkins NP) Pneumonia (Acute) PTSD (post-traumatic stress disorder) (Acute) TBI (traumatic brain injury) (Acute) Urethral disorder (Acute) No-show for appointment (Acute) Medical History (Updated 01/09/22 @ 21:29 by Karl Adkins NP) Asthma Chronic rhinitis Hepatitis C History of sexually transmitted disease Hep C, chlamydia Illiteracy IV drug abuse Mental health disorder Bipolar ?schizophrenia Mood disorder Opiate dependence Rosacea Tobacco use disorder Surgical History Knee Surgery, Right Family History Mother Diabetes Personal history of malignant neoplasm Spine? Father Substance abuse Alcoholism Diabetes Personal history of malignant neoplasm ??? Sister Mental disorder ADHD, bipolar Brother Mental disorder ADHD, bipolar Social History Smoking/Tobacco Use Status: Current every day Tobacco Type: cigarettes Smoking risk assessment performed?: Yes Alcohol Intake: current Alcohol Intake frequency: holidays/special occasions only Alcohol type: hard liquor Drug use: Occasionally Substance use type: marijuana and crack/cocaine Details: daily marijuana/methadone clinic Do you feel safe at home: Yes Do you feel safe in your relationship?: Yes Exam Const General: cooperative, comfortable and no acute distress Orientation: alert and awake HENMT Head: normal to inspection Ears: hearing grossly normal bilaterally General nose exam: external nose normal Face and sinus: no erythema Mouth: no muffled voice Neck Neck: normal visual inspection, full ROM and no meningeal signs Resp Effort & Inspection: normal respiratory effort, able to speak in complete sentences and cough Quality of cough: dry Auscultation: wheezes expiratory wheezes and right lower Cardio Rate: regular rate Rhythm: regular rhythm Heart Sounds: S1 normal, S2 normal, normal S1 and S2, no click, no gallops, no murmurs and no rubs Skin General skin exam: no rashes or lesions noted and dry skin (warm) Neuro General: patient alert, patient awake, patient oriented x3, gait normal and moves all extremities Cognition: normal cognition Speech: speech normal Course Vital Signs Vital signs: Vital Signs Temperature 36.8 C 01/09/22 20:50 Pulse 90 01/09/22 20:50 Respiratory Rate 18 01/09/22 20:50 Blood Pressure 116/61 01/09/22 20:50 Pulse Oximetry 93 01/09/22 20:50 Temperature 36.8 C 01/09/22 20:50 Temperature Source Skin 01/09/22 20:50 Pulse 90 01/09/22 20:50 Respiratory Rate 18 01/09/22 20:50 Respiratory Effort Non-Labored 01/09/22 20:55 Respiratory Depth Normal 01/09/22 20:55 Blood Pressure 116/61 01/09/22 20:50 Pulse Oximetry 93 01/09/22 20:50 Pain Level 5 01/09/22 20:50
[2022-01-09] MEDS: Doxycycline Hyclate 100 MG CAP PO (21:38)
== END 2022-01-09 21:39 | disposition home or self-care (01) ==
PROVIDERS: Emergency Provider Nurse Practitioner Family; PCP Nurse Practitioner Family
DX: J18.9 Pneumonia, unspecified organism (principal); J45.909 Unspecified asthma, uncomplicated; F17.210 Nicotine dependence, cigarettes, uncomplicated
CPT/HCPCS: 99283; 99284

== ENCOUNTER 2022-09-05 08:15 | Emergency (ER) | payer MEDICARE, MEDICAID, SELFPAY ==
[2022-09-05 08:18] VITALS: BP 127/74; PULSE 91; RESP 18; TEMP 37.5; O2SAT 99
--- NOTE | 2022-09-05 08:18 | ED.GENADUL_ITS ---
Discharge Plan Disposition Patient Disposition: Home Condition: Stable Discharge Details Clinical Impression: Hemorrhoid Primary Care Provider: None,None ED Provider: Valencia Godoy Home Meds and New Rx's Prescriptions: New docusate sodium [Colace] 100 mg capsule 100 mg PO BID PRN (Reason: constipation) Qty: 14 0RF epinephrine 0.3 mg/0.3 mL auto-injector 0.3 ml SC ONCE PRN (Reason: anaphylaxis) Qty: 2 0RF Rx Instructions: as a single dose; may repeat once (DME) miscellaneous medical supply Misc See Rx Instructions .Route Qty: 1 0RF Rx Instructions: As directed Continued methadone (bulk) 100 GM powder 130 gm Miscellaneous DAILY Patient Comments: [facility] Rx Instructions: BAART. Mixed with water albuterol sulfate 90 mcg/actuation HFA aerosol inhaler 2 puff inhalation Q6H PRN Discharge Instructions Instructions: Hemorrhoids (ED) Additional Instructions: You have a hemorrhoid on exam which is a bulging vein. These can be caused by pushing in cases of constipation or any activities that cause increased pressure in the abdomen and near your rectum. Alternate tylenol and motrin as needed and directed for pain. You were given Colace which is a stool softener to take at 1-2 times daily to help with softening stool and prevent constipation and worsening of your hemorrhoid. Prescriptions for Colace and a Sitz bath were sent electronically to your pharmacy to take and use as directed. A sitz bath is a hat which you can place inside the toilet and fill with water which can help improve the hemorrhoid. You can also sit in a bath with warm water a few times daily instead. A prescription for an EpiPen has also been sent electronically to your pharmacy per your request to use as needed and directed. If your hemorrhoid becomes more painful or larger, you can follow-up with general surgery for further evaluation. Follow-up with your primary care doctor in 1 week. Return to the emergency department with any worsening or new concerning symptoms such as fevers persistent vomiting, abdominal pain, persistent rectal bleeding or any other concerns. Referrals: Blanca Aguayo DO [OSTEOPATHIC DOCTOR] - Discharge Data Discharge Date/Time-TO BE ENTERED AT DEPARTURE: 09/05/22 09:11 Discharge Physician: Valencia Godoy Medical Decision Making 32-year-old male with a history of former IV drug use now on methadone, hepatitis C, tobacco use disorder, schizophrenia, PTSD, TBI who presents for rectal pain with possible hemorrhoid. Patient had stated he initially thought it was a tick last night and pulled the area and has had increased pain since then. No rectal bleeding, fever, vomiting or abdominal pain. Patient appears comfortable and nontoxic. He has a 1 x 1 cm indurated tender hemorrhoid with surrounding ecchymosis noted externally. This does not appear acutely thrombosed but may be progressing to that point. There are no foreign bodies noted. Patient advised on stool softeners and sitz bath's. As he has no report of bleeding and is hemodynamically stable, do not see indication for labs or imaging. He requested Colace to go as he reports he cannot afford it. He does have Medicaid so prescriptions for Colace and sitz bath sent electronically to his pharmacy. He also requested an EpiPen prescription. He was given surgery follow-up information if symptoms not improve or worsen. Usual and customary return precautions given prior to discharge. Medical Records Medical records reviewed: Yes I reviewed the patient's medical records. HPI General Mode of arrival: ambulatory . Date/Time Provider Initiated Documentation: 09/05/22 08:17 . Limitations to Documentation: no limitations . Information obtained by: patient . HPI Narrative: Patient is a 32-year-old male with a history of IV drug use now in remission on methadone, hepatitis C, tobacco use disorder, schizophrenia, PTSD and TBI who presents with concern for possible hemorrhoid and rectal pain. Patient states yesterday he had constipation and pushed with a bowel movement. Upon wiping he noted a lump and thought it was a tick and attempted to try to pull it off with his fingers. He states this resulted in rectal pain. He states his boss at his job looked at the area this morning and pulled it as well and told him he likely had a hemorrhoid and advised him to come to the emergency department. Patient states he has had increased pain since then. He denies any fever, nausea, vomiting, abdominal pain, rectal bleeding, difficulty urinating or any injury or foreign bodies placed in the area. He states he has not taken any medication or placed anything in the area. Related Data Home Medications Medication Instructions Recorded Confirmed methadone (bulk) 100 % powder 130 gm miscellaneous DAILY 07/05/15 09/05/22 albuterol sulfate 90 mcg/actuation 2 puff inhalation Q6H PRN 11/18/20 09/05/22 aerosol inhaler docusate sodium 100 mg capsule 100 mg PO BID PRN constipation #14 09/05/22 (Colace) caps epinephrine 0.3 mg/0.3 mL 0.3 ml subcut ONCE PRN anaphylaxis 09/05/22 injection, auto-injector #2 ea [employer] #1 ea 09/05/22 Previous Rx's Medication Instructions Recorded docusate sodium 100 mg capsule 100 mg PO BID PRN constipation #14 09/05/22 (Colace) caps epinephrine 0.3 mg/0.3 mL 0.3 ml subcut ONCE PRN anaphylaxis 09/05/22 injection, auto-injector #2 ea [employer] #1 ea 09/05/22 Allergies Allergy/AdvReac Type Severity Reaction Status Date / Time venom-honey bee Allergy Severe Anaphylaxsi Unverified 09/05/22 08:22 [bee venom (honey bee)] s General Stated Complaint: Abd Prob ROXANNA: 4 Review of Systems All systems reviewed & are unremarkable except as noted in HPI and below Constitutional Constitutional: Reports as per HPI, Denies chills and Denies fever(s) Eyes Eyes: Denies blurry vision ENT Ears, Nose, Mouth, and Throat: Denies dizziness, Denies sore throat and Denies throat swelling Cardiovascular Cardiovascular: Denies chest pain and Denies dyspnea Respiratory Respiratory: Denies cough and Denies dyspnea Gastrointestinal Gastrointestinal: Denies abdominal pain, Denies diarrhea, Denies vomiting and Reports other (hemorrhoid, rectal pain) Genitourinary Genitourinary: Denies hematuria and Denies dysuria Musculoskeletal Musculoskeletal: Denies back pain and Denies numbness Integumentary/Breasts Skin/Breast: Denies lesions and Denies rash Neurologic Neurologic: Denies dizziness, Denies localized weakness and Denies numbness Allergic/Immunologic Allergic/Immunologic: Denies throat swelling PFSH All Active Problems (Updated 09/05/22 @ 08:53 by Valencia Godoy DO) Hemorrhoid (Acute) PTSD (post-traumatic stress disorder) (Acute) TBI (traumatic brain injury) (Acute) Urethral disorder (Acute) No-show for appointment (Acute) Medical History (Updated 09/05/22 @ 08:53 by Valencia Godoy DO) Asthma Chronic rhinitis Hepatitis C History of sexually transmitted disease Hep C, chlamydia Illiteracy IV drug abuse Mental health disorder Bipolar ?schizophrenia Mood disorder Opiate dependence Rosacea Tobacco use disorder Surgical History Knee Surgery, Right Family History Mother Diabetes Personal history of malignant neoplasm Spine? Father Substance abuse Alcoholism Diabetes Personal history of malignant neoplasm ??? Sister Mental disorder ADHD, bipolar Brother Mental disorder ADHD, bipolar Social History Smoking/Tobacco Use Status: Current every day Tobacco Type: cigarettes Smoking risk assessment performed?: Yes Alcohol Intake: current Alcohol Intake frequency: holidays/special occasions only Alcohol type: hard liquor Drug use: Occasionally Substance use type: marijuana and crack/cocaine Details: daily marijuana/methadone clinic Do you feel safe at home: Yes Do you feel safe in your relationship?: Yes Exam Const General: cooperative and no acute distress Orientation: alert, awake and oriented x3 HENMT Head: normal to inspection Face and sinus: normal facial exam Eyes General: appearance normal, both eyes and all related structures Neck Neck: normal visual inspection and No submandibular swelling Lymphatic: no lymphadenopathy noted Chest Chest: normal inspection of the chest and no tenderness Resp Effort & Inspection: normal respiratory effort and able to speak in complete sentences Auscultation: clear to auscultation bilaterally Cardio Rate: regular rate Rhythm: regular rhythm GI Inspection: normal to inspection Palpation: soft, not firm, not rigid and nontender Auscultation: hypoactive bowel sounds Other: There is a 1 x 1 cm minimally tender indurated external hemorrhoid noted with surrounding ecchymosis. There are no foreign bodies including insects noted. There is no active bleeding. There is no surrounding erythema or edema. Skin General skin exam: no rashes or lesions noted Neuro General: patient alert, patient awake and patient oriented x3 Cognition: normal cognition Speech: speech normal Motor: muscle tone normal throughout Sensory Exam: no sensory deficits noted Extrem General: normal to inspection, full ROM, capillary refill normal, no calf tenderness bilaterally and no edema Psych Appearance: grossly normal Mental Status: mental status grossly normal Speech and Movement: speech and movement normal Affect: normal affect
[2022-09-05] MEDS: Docusate Sodium 100 MG CAP 600 MG PO (09:07)
== END 2022-09-05 09:11 | disposition home or self-care (01) ==
PROVIDERS: Emergency Provider Physician Assistant
DX: K64.9 Unspecified hemorrhoids (principal)
CPT/HCPCS: 99283

== ENCOUNTER 2022-11-21 08:02 | Emergency (ER) | payer MEDICARE, MEDICAID, SELFPAY ==
[2022-11-21 08:15] VITALS: BP 102/68; PULSE 70; RESP 18; TEMP 36.8; O2SAT 99
[2022-11-21] MEDS: Fluorescein STRIPS 100/BOX 1 MG (08:48)
[2022-11-21] MEDS: Tetracaine 0.5% 4 ML BTL (08:48)
[2022-11-21 09:00] VITALS: BP 102/68; PULSE 70; RESP 18; TEMP 36.8; O2SAT 99
--- NOTE | 2022-11-21 09:55 | W.ED.GENAD ---
Discharge Plan Disposition Patient Disposition: Home Discharge Details Clinical Impression: Conjunctivitis Primary Care Provider: None,None ED Provider: Alexandra Fernandez Home Meds and New Rx's Prescriptions: New erythromycin 5 mg/gram (0.5 %) ointment 0.5 inch ophthalmic (eye) TID Qty: 3.5 0RF Continued methadone (bulk) 100 GM powder 130 gm Miscellaneous DAILY Patient Comments: [facility] Rx Instructions: BAART. Mixed with water albuterol sulfate 90 mcg/actuation HFA aerosol inhaler 2 puff inhalation Q6H PRN docusate sodium [Colace] 100 mg capsule 100 mg PO BID PRN (Reason: constipation) Qty: 14 0RF epinephrine 0.3 mg/0.3 mL auto-injector 0.3 ml SC ONCE PRN (Reason: anaphylaxis) Qty: 2 0RF Rx Instructions: as a single dose; may repeat once (DME) miscellaneous medical supply Misc See Rx Instructions .Route Qty: 1 0RF Rx Instructions: As directed Discharge Instructions Instructions: Conjunctivitis (ED) Additional Instructions: Apply erythromycin 3 times a day, refrain from itching her eyes Wash your hands frequently with warm soapy water as this is very contagious Should you have persistent symptoms greater than 48 hours follow-up with [facility] eye care in [place] Return earlier should you have new or worsening complaints Medical Decision Making 32-year-old male presents with right eye irritation and redness started this morning Pupils equal round reactive to light and accommodation, no periorbital swelling or edema, extraocular muscles intact, no fluorescein uptake, slit-lamp exam does not display any acute abnormality, low suspicion clinically for glaucoma, pupils equal round reactive to light and accommodation, no ocular pain No evidence of fluorescein uptake on slit-lamp or Arias lamp Visual acuity 20/25 right, 20/[address] on erythromycin Should be referral without improvement in symptoms in 48 hours Return precautions reviewed and patient expressed understanding HPI General Date/Time Provider Initiated Documentation: 11/21/22 08:33. HPI Narrative: 32-year-old male presents with right eye irritation since this morning. Denies known injury but does work with corn dust daily. Denies any significant vision change. States his eye is itchy. Denies any discharge. Related Data Home Medications Medication Instructions Recorded Confirmed methadone (bulk) 100 % powder 130 gm miscellaneous DAILY 07/05/15 11/21/22 albuterol sulfate 90 mcg/actuation 2 puff inhalation Q6H PRN 11/18/20 11/21/22 aerosol inhaler docusate sodium 100 mg capsule 100 mg PO BID PRN constipation #14 09/05/22 11/21/22 (Colace) caps epinephrine 0.3 mg/0.3 mL 0.3 ml subcut ONCE PRN anaphylaxis 09/05/22 11/21/22 injection, auto-injector #2 ea [employer] #1 ea 09/05/22 11/21/22 erythromycin 5 mg/gram (0.5 %) eye 0.5 inch ophthalmic (eye) TID #3.5 11/21/22 ointment grams Previous Rx's Medication Instructions Recorded docusate sodium 100 mg capsule 100 mg PO BID PRN constipation #14 09/05/22 (Colace) caps epinephrine 0.3 mg/0.3 mL 0.3 ml subcut ONCE PRN anaphylaxis 09/05/22 injection, auto-injector #2 ea [employer] #1 ea 09/05/22 erythromycin 5 mg/gram (0.5 %) eye 0.5 inch ophthalmic (eye) TID #3.5 11/21/22 ointment grams Allergies Allergy/AdvReac Type Severity Reaction Status Date / Time venom-honey bee Allergy Severe Anaphylaxsi Unverified 09/05/22 08:22 [bee venom (honey bee)] s General Stated Complaint: EyeProblem ROXANNA: 4 PFSH All Active Problems (Updated 11/21/22 @ 09:03 by ISSA Leo) Conjunctivitis (Acute) PTSD (post-traumatic stress disorder) (Acute) TBI (traumatic brain injury) (Acute) Urethral disorder (Acute) No-show for appointment (Acute) Medical History (Updated 11/21/22 @ 09:03 by ISSA Leo) Asthma Chronic rhinitis Hepatitis C History of sexually transmitted disease Hep C, chlamydia Illiteracy IV drug abuse Mental health disorder Bipolar ?schizophrenia Mood disorder Opiate dependence Rosacea Tobacco use disorder Surgical History Knee Surgery, Right Family History Mother Diabetes Personal history of malignant neoplasm Spine? Father Substance abuse Alcoholism Diabetes Personal history of malignant neoplasm ??? Sister Mental disorder ADHD, bipolar Brother Mental disorder ADHD, bipolar Social History Smoking/Tobacco Use Status: Current every day Tobacco Type: cigarettes Smoking risk assessment performed?: Yes Alcohol Intake: current Alcohol Intake frequency: holidays/special occasions only Alcohol type: hard liquor Drug use: Occasionally Substance use type: marijuana and crack/cocaine Details: daily marijuana/methadone clinic Housing: apartment Do you feel safe at home: Yes Do you feel safe in your relationship?: Yes Course Vital Signs Vital signs: Vital Signs Temperature 36.8 C 11/21/22 08:15 Pulse 70 11/21/22 08:15 Respiratory Rate 18 11/21/22 08:15 Blood Pressure 102/68 11/21/22 08:15 Pulse Oximetry 99 11/21/22 08:15 Temperature 36.8 C 11/21/22 09:00 Temperature Source Oral 11/21/22 08:15 Pulse 70 11/21/22 09:00 Respiratory Rate 18 11/21/22 09:00 Respiratory Effort Normal, Non-Labored 11/21/22 08:56 Blood Pressure 102/68 11/21/22 09:00 Blood Pressure Position Sitting 11/21/22 08:15 Pulse Oximetry 99 11/21/22 09:00
== END 2022-11-21 09:09 | disposition home or self-care (01) ==
PROVIDERS: Emergency Provider Physician Assistant
DX: H10.9 Unspecified conjunctivitis (principal); F17.210 Nicotine dependence, cigarettes, uncomplicated
CPT/HCPCS: 99282

== ENCOUNTER 2023-09-09 16:22 | Emergency (ER) | payer MEDICARE, SELFPAY ==
[2023-09-09] VITALS (53 sets, daily range): BP systolic 75–140; BP diastolic 47–94; PULSE 82–123; RESP 8–35; TEMP 38; O2SAT 95
--- NOTE | 2023-09-09 16:30 | DI.RAD_ITS ---
Exam(s) XR FOREARM LT EXAM: XR FOREARM LT CLINICAL HISTORY: Infection. TECHNIQUE: 2D digital imaging was performed. Two views. COMPARISON: No exams were available for comparison FINDINGS: BONES: No acute fracture is present. No bony destructive lesion is seen. Visualized portion of elbow and wrist joints are unremarkable. SOFT TISSUE: Swelling around the dorsal aspect of wrist. No foreign body. Soft tissue wound seen do rsally IV catheter noted level of elbow. No abnormal gas collection. IMPRESSION: Soft tissue swelling of the wrist. No acute bony abnormality. DATA REPOSITORY: RADIATION DOSE DELIVERED:
--- NOTE | 2023-09-09 16:30 | DI.RAD_ITS ---
Exam(s) XR FOREARM RT EXAM: XR FOREARM RT CLINICAL HISTORY: Infection. TECHNIQUE: 2D digital imaging was performed. Two views. COMPARISON: CR,XR XR FOREARM LT from 09/09/2023 FINDINGS: BONES: No acute fracture is present. No bony destructive lesion is seen. Visualized portion of elbow and wrist joints are unremarkable. SOFT TISSUE: Swelling around wrist. No abnormal soft tissue gas. No foreign body. IMPRESSION: soft tissue swelling. No bony abnormality. DATA REPOSITORY: RADIATION DOSE DELIVERED:
--- NOTE | 2023-09-09 16:38 | ED.GENADUL_ITS ---
Discharge Plan Disposition Patient Disposition: Home Condition: Stable Discharge Details Clinical Impression: Cellulitis of multiple sites of upper arm, IVDU (intravenous drug user) Primary Care Provider: Unknown,Unknown ED Provider: Ledy Mccartney Home Meds and New Rx's Prescriptions: New sulfamethoxazole-trimethoprim [Bactrim] 400-80 mg tablet 1 tab PO BID 20 Days Qty: 40 0RF Rx Instructions: Take one tablet by mouth twice daily x 10 days No Action methadone (bulk) 100 GM powder 130 gm Miscellaneous DAILY Patient Comments: [facility] Program Rx Instructions: BAART. Mixed with water albuterol sulfate 90 mcg/actuation HFA aerosol inhaler 2 puff inhalation Q6H PRN docusate sodium [Colace] 100 mg capsule 100 mg PO BID PRN (Reason: constipation) Qty: 14 0RF epinephrine 0.3 mg/0.3 mL auto-injector 0.3 ml SC ONCE PRN (Reason: anaphylaxis) Qty: 2 0RF Rx Instructions: as a single dose; may repeat once (DME) miscellaneous medical supply Misc See Rx Instructions .Route Qty: 1 0RF Rx Instructions: As directed erythromycin 5 mg/gram (0.5 %) ointment 0.5 inch ophthalmic (eye) TID Qty: 3.5 0RF Discharge Instructions Instructions: Cellulitis (ED) Additional Instructions: Please take the medication twice daily x 10 days. Do not pick at the lesions on your arms. Keep them covered, clean and dry. Wash daily with soap and water. Please be seen again in 3 days for a re-check. Follow up with primary care provider in 3-5 days. Return to ED sooner if any worsening or concerns. Please take Tylenol or Ibuprofen with food every 4-6 hours as needed for pain and swelling. Call [facility] to speak with someone regarding drug abuse. Referrals: [facility] [Provider Group] - 3 days [facility] [Outside] - 2 days HPI General Mode of arrival: ambulatory . Date/Time Provider Initiated Documentation: 09/09/23 16:25 . Limitations to Documentation: no limitations . Information obtained by: patient, EMS, RN notes reviewed and old records reviewed . HPI Narrative: 33-year-old male with a past medical history of hepatitis C, IV drug use, tobacco use disorder, asthma opiate dependence presents to the ER with chief complaint of bilateral upper extremity wounds and redness associated with warmth and red streaking up to his axilla bilaterally. He reports he noticed that yesterday he did use IV drugs in the last week admits to cocaine last night. He also has an area of erythema redness and warmth to his right lower extremity. He is tachycardic upon arrival and febrile with a temp of 38.0 heart rate of 123. He is cachectic looking and disheveled. Related Data Home Medications Medication Instructions Recorded Confirmed methadone (bulk) 100 % powder 130 gm miscellaneous DAILY 07/05/15 11/21/22 albuterol sulfate 90 mcg/actuation 2 puff inhalation Q6H PRN 11/18/20 11/21/22 aerosol inhaler docusate sodium 100 mg capsule 100 mg PO BID PRN constipation #14 09/05/22 11/21/22 (Colace) caps epinephrine 0.3 mg/0.3 mL 0.3 ml subcut ONCE PRN anaphylaxis 09/05/22 11/21/22 injection, auto-injector #2 ea [facility] #1 ea 09/05/22 11/21/22 erythromycin 5 mg/gram (0.5 %) eye 0.5 inch ophthalmic (eye) TID #3.5 11/21/22 ointment grams sulfamethoxazole 400 1 tab PO BID Cellulitis 20 days 09/09/23 mg-trimethoprim 80 mg tablet #40 tabs (Bactrim) Previous Rx's Medication Instructions Recorded docusate sodium 100 mg capsule 100 mg PO BID PRN constipation #14 09/05/22 (Colace) caps epinephrine 0.3 mg/0.3 mL 0.3 ml subcut ONCE PRN anaphylaxis 09/05/22 injection, auto-injector #2 ea [facility] #1 ea 09/05/22 erythromycin 5 mg/gram (0.5 %) eye 0.5 inch ophthalmic (eye) TID #3.5 11/21/22 ointment grams sulfamethoxazole 400 1 tab PO BID Cellulitis 20 days 09/09/23 mg-trimethoprim 80 mg tablet #40 tabs (Bactrim) Allergies Allergy/AdvReac Type Severity Reaction Status Date / Time venom-honey bee Allergy Severe Anaphylaxsi Unverified 09/05/22 08:22 [bee venom (honey bee)] s General Stated Complaint: Cellulitis ROXANNA: 3 Review of Systems All systems reviewed & are unremarkable except as noted in HPI and below Constitutional Constitutional: Reports as per HPI and Reports fever(s) Integumentary/Breasts Skin/Breast: Reports as per HPI, Reports erythema (Red streaks noted going up to bilateral axilla), Reports sores and Reports wounds (Ulceration type wounds noted to his bilateral dorsal aspect of his wrists, ) Exam Narrative Exam Narrative: Constitutional: Alert and oriented x3. Appears stated age. Very thin body habitus., Restless pressured speech. Head: Normocephalic, no trauma. Eyes: Pupils PERRL, Red reflex noted, EOM's intact. Eyelids symmetrical without lesions, discharge, or swelling. ENT: Bilateral TM's WNL, External ear normal to inspection, no mastoid TTP, swelling, or erythema, Nasal turbinates WNL, no nasal discharge. Chest: RRR, Normal S1, S2, distal pulses intact. Resp: Lungs clear to auscultation bilaterally, no wheezes, rales, or rhonchi. Abdomen: Soft, non-distended, Normoactive bowel sounds all 4 quads. Musculoskeletal: Normal gait, Moves all 4 extremities without difficulty. Skin: Does have some ulcer type wounds noted to his bilateral dorsal wrist, he does have erythema surrounding with red streaks up into his axilla bilaterally, he also has track elizalde noted on both of his lower extremities and red warm raised area to his right lower extremity. Neurologic: Cranial nerves II-XII intact. Alert and oriented x 3. Motor: No deficits noted. Sensory: Intact bilaterally all 4 extremities. Skin Full body images: 2 1. Red streaks noted extending up from a wound to the distal extremity 2. Red streaks noted 3. Red, warm erythema with surrounding track elizalde which appear old and new Extrem Hand/finger images: 2 1. Ulcerated-excoriated type wound noted 2. Smaller excoriated, ulcerated wound with surrounding erythema and red streaks Course Vital Signs Vital signs: Vital Signs Temperature 38.0 C H 09/09/23 16:22 Pulse 123 H 09/09/23 16:22 Respiratory Rate 20 09/09/23 16:22 Blood Pressure 140/94 H 09/09/23 16:22 Pulse Oximetry 95 09/09/23 16:22 Temperature 38.0 C H 09/09/23 16:28 Pulse 123 H 09/09/23 16:28 Respiratory Rate 20 09/09/23 16:28 Blood Pressure 140/94 H 09/09/23 16:28 Pulse Oximetry 95 09/09/23 16:28 Oxygen Delivery Method Room Air 09/09/23 16:28 Oxygen Flow Rate 0 09/09/23 16:28 Pain Level 2 09/09/23 16:28 Lab/Test Results Lab/Test Results: 09/09/23 16:33 Blood Blood Culture - Pending 09/09/23 16:33 Blood Blood Culture - Pending Medical Decision Making 33-year-old male with a past medical history of hepatitis C, IV drug use, tobacco use disorder, asthma opiate dependence presents to the ER with chief complaint of bilateral upper extremity wounds and redness associated with warmth and red streaking up to his axilla bilaterally. He reports he noticed that yesterday he did use IV drugs in the last week admits to cocaine last night. He also has an area of erythema redness and warmth to his right lower extremity. He is tachycardic upon arrival and febrile with a temp of 38.0 heart rate of 123. He is cachectic looking and disheveled. White blood cell count 16.79, absolute neutrophils 13.53, lactate within normal limits at 1.0 potassium 3.6 with sodium 137, glucose 114 magnesium slightly low at 1.7. Bilateral forearm x-rays within normal limits no gas no signs of osteomyelitis there is some soft tissue swelling. No bony abnormality noted. Please see official report. Informed by ED staff that patient is beginning to have a rash and itching, vancomycin stopped. 25 mg Benadryl ordered IV. Patient is requesting to eat and a nicotine patch. 194: HR 93, BP is 117/78 O2 sat 98%RA. Will DC with Bactrim to go and prescription for Bactrim x 10 days. This text was generated using [employer] dictation system, please disregard any oddities of phrase or misspellings. Imaging Data Radiologic Study: Imaging: X-Ray Radiologist's impression: TECHNIQUE: Imaging protocol: Radiologic exam of the left forearm. Views: 2 views. COMPARISON: CR XR FINGER LT RING 01/13/2020 12:14 PM FINDINGS: Bones/joints: No acute fracture or dislocation. No elbow joint effusion. No periosteal reaction. No cortical erosion. Soft tissues: Soft swelling around the wrist joint with suspicion of skin defect at the dorsal aspect of the wrist. IMPRESSION: No changes of osteomyelitis. Thank you for allowing us to participate in the care of your patient. Dictated and Authenticated by: Rancho Cutler MD Lab Data Lab results reviewed: Yes I reviewed the patient's lab results. Labs: 09/09/23 17:25 Blood Blood Culture - Pending 09/09/23 16:50 Blood Blood Culture - Pending Laboratory Tests Range/Units 09/09/23 16:50 WBC (4.4-10.8) 10^3/uL 16.79 H RBC (4.36-5.78) 10^6/uL 3.87 L Hgb (13.5-17.5) g/dL 11.2 L Hct (40.0-50.0) % 33.8 L MCV (80-95) fL 87 MCH (27.0-33.0) pg 28.9 MCHC (32.0-36.0) % 33.1 RDW (11.8-14.1) % 12.6 Plt Count (130-400) 10^3/uL 297 MPV (8.0-11.0) fL 8.7 Immature Gran % % 0.4 Neutrophils % % 80.6 Lymphocytes % % 12.7 Monocytes % % 5.2 Eosinophils % % 0.7 Basophils % % 0.4 Nucleated RBC % (0.0-0.3) % 0.0 Absolute Neutrophils (1.2-6.7) 10^3/uL 13.53 H Absolute Lymphocytes (1.2-3.4) 10^3/uL 2.13 Absolute Monocytes (0.1-0.8) 10^3/uL 0.87 H Absolute Eosinophils (0.0-0.7) 10^3/uL 0.12 Absolute Basophils (0.0-0.2) 10^3/uL 0.07 VBG Lactate (0.6-1.4) mmol/L 1.0 Sodium (136-145) mmol/L 137 Potassium (3.5-5.1) mmol/L 3.6 Chloride (98-107) mmol/L 98 Carbon Dioxide (21.0-32.0) mmol/L 32.3 H Anion Gap (3-11) mmol/L 6.7 BUN (7-18) mg/dL 10 Creatinine (0.70-1.30) mg/dL 0.7 Est GFR (CKD-EPI 2020) (mL/min/1.73m2) 123.23 Glucose (74-106) mg/dL 114 H Calcium (8.5-10.1) mg/dL 8.5 Magnesium (1.8-2.4) mg/dL 1.7 L Total Bilirubin (0.2-1.0) mg/dL 0.5 AST (15-37) U/L 41 H ALT (16-63) U/L 28 Alkaline Phosphatase (46-116) U/L 82 Total Protein (6.4-8.2) g/dL 7.9 Albumin (3.4-5.0) g/dL 3.4 Quality:SDOH Health Related Social Needs: 2 No Data to Display PFSH All Active Problems (Updated 09/09/23 @ 20:11 by Ledy Mccartney NP) IVDU (intravenous drug user) (Acute) Cellulitis of multiple sites of upper arm (Acute) PTSD (post-traumatic stress disorder) (Acute) TBI (traumatic brain injury) (Acute) Urethral disorder (Acute) No-show for appointment (Acute) Medical History Rosacea Chronic rhinitis Mood disorder Asthma History of sexually transmitted disease Hep C, chlamydia Tobacco use disorder Illiteracy Mental health disorder Bipolar ?schizophrenia Hepatitis C Opiate dependence IV drug abuse Surgical History Knee Surgery, Right Family History Mother Diabetes Personal history of malignant neoplasm Spine? Father Substance abuse Alcoholism Diabetes Personal history of malignant neoplasm ??? Sister Mental disorder ADHD, bipolar Brother Mental disorder ADHD, bipolar Social History Smoking/Tobacco Use Status: Current every day Tobacco Type: cigarettes Smoking risk assessment performed?: Yes Alcohol Intake: current Alcohol Intake frequency: holidays/special occasions only Alcohol type: hard liquor Drug use: Occasionally Substance use type: marijuana, crack/cocaine and heroin Details: daily marijuana/methadone clinic Housing: apartment Do you feel safe at home: Yes Do you feel safe in your relationship?: Yes
[2023-09-09 17:03] LABS: Abs Immature Grans 0.06 10^3/uL (0.0-0.06); Absolute Basophil Count 0.07 10^3/uL (0.0-0.2); Absolute Eosinophil Count 0.12 10^3/uL (0.0-0.7); Absolute Lymphocyte Count 2.13 10^3/uL (1.2-3.4); Absolute Monocyte Count 0.87 10^3/uL (0.1-0.8); Absolute Neutrophil Count 13.53 10^3/uL (1.2-6.7); Basophils % 0.4 %; Eosinophils % 0.7 %; HCT 33.8 % (40.0-50.0); HGB 11.2 g/dL (13.5-17.5); Immature Grans % 0.4 %; Lymphocytes % 12.7 %; MCH 28.9 pg (27.0-33.0); MCHC 33.1 % (32.0-36.0); MCV 87 fL (80-95); MPV 8.7 fL (8.0-11.0); Monocytes % 5.2 %; Neutrophils % 80.6 %; Platelet Count 297 10^3/uL (130-400); RBC 3.87 10^6/uL (4.36-5.78); RDW 12.6 % (11.8-14.1); RDW-SD 40.3 fL; WBC 16.79 10^3/uL (4.4-10.8)
[2023-09-09 17:18] LABS: ALT 28 U/L (16-63); AST 41 U/L (15-37); Albumin 3.4 g/dL (3.4-5.0); Alkaline Phosphatase 82 U/L (46-116); Anion Gap 6.7 mmol/L (3-11); BUN 10 mg/dL (7-18); Bilirubin, Total 0.5 mg/dL (0.2-1.0); CO2 32.3 mmol/L (21.0-32.0); CREATININE 0.7 mg/dL (0.70-1.30); Calcium 8.5 mg/dL (8.5-10.1); Chloride 98 mmol/L (98-107); Estimated GFR 123.23 (mL/min/1.73m2); Glucose 114 mg/dL (74-106); Magnesium 1.7 mg/dL (1.8-2.4); Potassium 3.6 mmol/L (3.5-5.1); Sodium 137 mmol/L (136-145); Total Protein 7.9 g/dL (6.4-8.2)
[2023-09-09] MEDS: ceFAZolin 1 GM/50 ML BAG IVPB (17:42)
[2023-09-09] MEDS: Normal Saline 1,000 ML 1000 ML IV (17:43)
--- NOTE | 2023-09-09 17:52 | DI.VRAD_ITS ---
PROCEDURE INFORMATION: Exam: XR Right Forearm Exam date and time: 09/09/2023 4:58 PM Age: 33 years old Clinical indication: Other: Infection TECHNIQUE: Imaging protocol: Radiologic exam of the right forearm. Views: 2 views. COMPARISON: No relevant prior studies available. FINDINGS: Bones/joints: No elbow joint effusion. No periosteal reaction or cortical erosion. No acute fracture or dislocation. Soft tissues: There soft tissue swelling around the proximal forearm. IMPRESSION: No radiographic changes of osteomyelitis. Dictated and Authenticated by: Rancho Cutler MD. Ordering:FELIX Villafana MD
[2023-09-09] MEDS: ACETAMINOPHEN 1,000 MG/100 ML BTL 400 MG IVPB (17:53)
--- NOTE | 2023-09-09 17:53 | DI.VRAD_ITS ---
PROCEDURE INFORMATION: Exam: XR Left Forearm Exam date and time: 09/09/2023 4:56 PM Age: 33 years old Clinical indication: Other: Infection TECHNIQUE: Imaging protocol: Radiologic exam of the left forearm. Views: 2 views. COMPARISON: CR XR FINGER LT RING 01/13/2020 12:14 PM FINDINGS: Bones/joints: No acute fracture or dislocation. No elbow joint effusion. No periosteal reaction. No cortical erosion. Soft tissues: Soft swelling around the wrist joint with suspicion of skin defect at the dorsal aspect of the wrist. IMPRESSION: No changes of osteomyelitis. Dictated and Authenticated by: Rancho Cutler MD. Ordering:FELIX Villafana MD
[2023-09-09] MEDS: VANCOMYCIN 1,000 MG in Normal Saline 250 ML 166.6666 MG IVPB (19:15)
[2023-09-09 20:12] LABS: Bilirubin Small (Negative); Blood Moderate (Negative); Clarity Clear (Clear); Glucose Negative (Negative); Ketones Negative (Negative); Leukocyte Esterase Negative (Negative); Nitrite Negative (Negative); Specific Gravity >= 1.030 (1.005-1.025); Urobilinogen 0.2 mg/dL (Up to 0.2); pH 5.5 (5-8)
[2023-09-09] MEDS: Sulfameth/Trimeth DS TAB 1 TAB PO (20:14)
[2023-09-09] MEDS: Sulfameth/Trimeth DS, 2 TABS/BTL 1 TAB PO (20:15)
[2023-09-09] MEDS: diphenhydrAMINE 50 MG/ML VIAL 25 MG IVP (20:19)
[2023-09-09 20:24] LABS: *AMPHETAMINES SCREEN URINE Positive (Negative); *BARBITURATES SCREEN URINE Negative (Negative); *BENZODIAZEPINES SCREEN URINE Negative (Negative); Cannabinoids THC Positive (Negative); Cocaine Screen,Urine Positive (Negative); METHADONE URINE SCREEN Positive (Negative); OPIATES URINE SCREEN Negative (Negative)
[2023-09-09 20:27] LABS: Tricyclic Antidepressants Negative (Negative)
[2023-09-09 20:29] LABS: Bacteria Negative HPF (Negative); C & S Indicated? No; Casts Negative LPF (Negative); Crystals Mod Calcium Oxalate HPF (Negative); Epithelial Cells Rare HPF (Negative); Mucus Heavy (Negative)
--- NOTE | 2023-09-10 15:46 | W.ED.FU ---
Date of service: 09/10/23 Time of Service: 15:46 Follow Up Plan: Blood cultures growing gram-positive cocci in clusters. Not further differentiated yet. Patient has no phone number available to contact. Letter sent to listed residence with instruction to call the ED.
--- NOTE | 2023-09-10 15:52 | NUR.NOTE ---
Addendum entered by Nallely Pearl 09/11/23 14:29: Dr. Tejeda received corrected blood culture results on this patient today. A second letter is sent to the patient stating for the patient to return to the ED for blood culture redraw today. Original Note: Accessed chart to send letter to pt to call due to culture results. Nursing Note:
--- NOTE | 2023-09-11 14:19 | W.ED.FU ---
Date of service: 09/11/23 Time of Service: 14:19 Follow Up Plan: Positive blood cultures resulted 09/09. Attempted to call contact listed in chart phone numbers no longer in service. A letter has been sent to the patient.
== END 2023-09-09 20:23 | disposition home or self-care (01) ==
PROVIDERS: Emergency Provider Registered Nurse Emergency
DX: L03.114 Cellulitis of left upper limb (principal); L03.113 Cellulitis of right upper limb; L03.115 Cellulitis of right lower limb; F17.210 Nicotine dependence, cigarettes, uncomplicated; F19.10 Other psychoactive substance abuse, uncomplicated
CPT/HCPCS: 36415; 80053; 80307; 87040; 96365; 96368; 96375; 99284; 73090; 81003; 81015; 83605; 83735; 85025; 99283; J0131; J0690; J1200; J3370

== ENCOUNTER 2023-09-13 08:44 | Emergency (ER) | payer SELFPAY ==
--- NOTE | 2023-09-14 10:12 | PDOC.CMPRO ---
Date of service: 09/14/23 Time of Service: 10:12 Care Management Progress Note Progress Note Text Progress Note Text: CM was consulted by the ED to assist with PCP follow up for Karl, who was seen in the ED on 09/13/23. 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 Park. CM contacted [facility] Internal medicine, who was able to schedule a follow up appointment for 09/19/23 at 2:30pm with Dr. Hernández. CM called the contact number provided by the patient ([phone]) and left a message, providing the date and time of the PCP follow up appointment.
== END 2023-09-13 09:53 ==
LOC: ER 10:17
PROVIDERS: Emergency Provider Emergency Medicine
DX: F19.90 Other psychoactive substance use, unspecified, uncomplicated; L03.113 Cellulitis of right upper limb; L03.114 Cellulitis of left upper limb
CPT/HCPCS: 99283

== ENCOUNTER 2023-12-23 14:00 | Emergency (ER) | payer SELFPAY ==
[2023-12-23 13:59] VITALS: BP 125/89; PULSE 79; RESP 16; TEMP 37; O2SAT 98
[2023-12-23 14:06] VITALS: BP 125/89; PULSE 85; RESP 16; O2SAT 98
--- NOTE | 2023-12-23 14:06 | W.ED.GENAD ---
Discharge Plan Disposition Patient Disposition: Home Condition: Stable Discharge Details Clinical Impression: Substance use disorder, TBI (traumatic brain injury) ED Provider: Rosalina Castro Home Meds and New Rx's Prescriptions: New naloxone [Narcan] 4 mg/actuation spray,non-aerosol 4 mg intranasal Q2M PRNQty: 2 0RF Rx Instructions: spray 1 dose into ONE nostril; alternate nostrils w each dose until help arrives Continued albuterol sulfate 90 mcg/actuation HFA aerosol inhaler 2 puff inhalation Q6H PRNQty: 1 0RF No Action methadone (bulk) 100 GM powder 130 gm Miscellaneous DAILY Patient Comments: [facility] Rx Instructions: BAART. Mixed with water epinephrine 0.3 mg/0.3 mL auto-injector 0.3 ml SC ONCE PRN (Reason: anaphylaxis) Qty: 2 0RF Rx Instructions: as a single dose; may repeat once (DME) miscellaneous medical supply Misc See Rx Instructions .Route Qty: 1 0RF Rx Instructions: As directed Discharge Instructions Instructions: Drug Misuse and Addiction (DC) Additional Instructions: You were seen in the emergency department today for evaluation of altered mental status. In our department you had a full physical examination performed, had laboratory studies that were reassuring, and we monitored you here in the emergency department. You likely experienced this symptom due to the substances and medications that you use, and we do admissions counselor you to continue to utilize your recovery support resources including your methadone clinic. We recommend that you follow-up with your primary care provider in the next few days to discuss this visit and any symptoms that change, worsen, or persist. I did send a prescription for your albuterol inhaler as well as Narcan to your pharmacy and you should pick these up today. Thank you for allowing us to be part of your care. HPI General Mode of arrival: EMS. Date/Time Provider Initiated Documentation: 12/23/23 14:06. Limitations to Documentation: no limitations. Information obtained by: patient and EMS. HPI Narrative: MDM: In brief, this is a 33-year-old male patient brought in by EMS after experiencing an alteration level of consciousness and the concern for respiratory effort while in protective custody. My differential includes but is not limited to toxic exposure/overdose, withdrawal syndromes, certainly considered metabolic and electrolyte derangements, anemia, dehydration, kidney injury, liver disease. Reassuringly, the patient had no reported trauma, is not febrile and has had no recent injuries. He is not experiencing infectious symptoms such as chills, and I have a lower concern for severe infection such as bacteremia, endocarditis, or sepsis. On arrival at our emergency department he is awake, alert, conversational and hemodynamically appropriate. We will obtain basic laboratory studies to include CBC, CMP, magnesium, ethanol, and will keep the patient on SpO2 monitoring while the use are performed to ensure that he does not experience desaturation events or poor respiratory effort. ED Course: I independently interpreted the laboratory studies, which show no significant leukocytosis, anemia, or thrombocytopenia. The chemistry panel is without evidence of electrolyte abnormality, kidney dysfunction, or liver injury. Ethanol level negative. After period of observation the patient has remained awake and alert, has tolerated p.o. intake, and is clinically sober. He is desiring of discharge to home. Reasonable effort was made to contact his friend who unfortunately did not answer the phone. The patient feels comfortable getting himself to his home, and adequate resources have been offered. I did send a refill of his inhaler to the pharmacy, along with an intranasal Narcan administration kit given his active substance use. At this time, the patient has had a full medical evaluation and is safe for discharge to home. They are hemodynamically stable, ambulatory, and tolerating PO. They are understanding of the follow-up plan and return precautions. They left our facility without incident. Rosalina Castro MD HPI: This is a 33-year-old male patient with a past medical history significant for opioid use disorder, TBI, presenting for evaluation of altered mental status. The patient was in protective custody and the facility noticed that he had alteration in mental status, was concern for poor respiratory effort and noted cyanosis of the lips. They summoned EMS given their inability to monitor the patient in that environment. EMS reports the patient was awake, alert, oriented, and hemodynamically appropriate. He did not require any rescue medications such as Narcan. He was transported to our department without incident. The patient reports that he last used heroin intravenously at 5 PM last night, because he missed his dose of methadone. He reports that he injects, typically in his neck, and often will inject plain water to mimic the experience. He states that he had 2 beers today, and suspects that that is the reason why he was unresponsive, as he does not drink often. Otherwise the patient reports that he is without complaint, experiencing suicidal or homicidal ideation today, has a home where he resides with several roommates, and feels safe. Exam: Gen: Cachectic appearing male patient, awake and alert, in no apparent distress. HEENT: Non-icteric sclera, pupils are equal and reactive at 3 mm bilaterally Neck: Supple, no meningismus Lungs: No apparent respiratory distress, normal respiratory effort, lung sounds clear. CV: Appears well perfused, heart with regular rate and rhythm, no audible murmurs Abdomen: Non-distended, soft MSK: Moves 4 extremities without apparent limitation in ROM Skin: Visualized skin without rashes, cyanosis. The patient has numerous bruises and injection elizalde, primarily on the arms and right sided neck, with no evidence of induration, fluctuance Neuro: Normal Gait, no obvious focal deficits or facial asymmetry. Speaks in full, clear sentences. Psych: Appropriate for situation. Related Data Home Medications ?Medication ?Instructions ?Recorded ?Confirmed methadone (bulk) 100 % powder 130 gm miscellaneous DAILY 07/05/15 12/23/23 epinephrine 0.3 mg/0.3 mL 0.3 ml subcut ONCE PRN anaphylaxis 09/05/22 12/23/23 injection, auto-injector #2 ea [facility] medical supply #1 ea 09/05/22 11/21/22 albuterol sulfate 90 mcg/actuation 2 puff inhalation Q6H PRN #1 g 12/23/23 aerosol inhaler naloxone 4 mg/actuation nasal 4 mg intranasal Q2M PRN #2 ea 12/23/23 spray (Narcan) Previous Rx's ?Medication ?Instructions ?Recorded epinephrine 0.3 mg/0.3 mL 0.3 ml subcut ONCE PRN anaphylaxis 09/05/22 injection, auto-injector #2 ea [facility] medical supply #1 ea 09/05/22 albuterol sulfate 90 mcg/actuation 2 puff inhalation Q6H PRN #1 g 12/23/23 aerosol inhaler naloxone 4 mg/actuation nasal 4 mg intranasal Q2M PRN #2 ea 12/23/23 spray (Narcan) Allergies Allergy/AdvReac Type Severity Reaction Status Date / Time venom-honey bee (bee venom Allergy Severe Anaphylaxsi Verified 12/23/23 14:12 (honey bee)) s General Stated Complaint: AMS/LOC ROXANNA: 3 Course Vital Signs Vital signs: Vital Signs Temperature 37.0 C 12/23/23 13:59 Pulse 79 12/23/23 13:59 Respiratory Rate 16 12/23/23 13:59 Blood Pressure 125/89 12/23/23 13:59 Pulse Oximetry 98 12/23/23 13:59 Temperature 37.0 C 12/23/23 13:59 Temperature Source Skin 12/23/23 13:59 Pulse 79 12/23/23 13:59 Respiratory Rate 16 12/23/23 13:59 Blood Pressure 125/89 12/23/23 13:59 Blood Pressure Position Sitting 12/23/23 13:59 Pulse Oximetry 98 12/23/23 13:59 Oxygen Delivery Method Room Air 12/23/23 13:59 Oxygen Flow Rate 0 12/23/23 13:59 Pain Level 0 12/23/23 13:59 Medical Decision Making Quality:SDOH Health Related Social Needs: No Data to Display PFSH All Active Problems (Updated 12/23/23 @ 15:06 by Rosalina Castro MD) Substance use disorder (Acute) PTSD (post-traumatic stress disorder) (Acute) TBI (traumatic brain injury) (Acute) Urethral disorder (Acute) No-show for appointment (Acute) Medical History Rosacea Chronic rhinitis Mood disorder Asthma History of sexually transmitted disease Hep C, chlamydia Tobacco use disorder Illiteracy Mental health disorder Bipolar ?schizophrenia Hepatitis C Opiate dependence IV drug abuse Surgical History Knee Surgery, Right Family History Mother Diabetes Personal history of malignant neoplasm Spine? Father Substance abuse Alcoholism Diabetes Personal history of malignant neoplasm ??? Sister Mental disorder ADHD, bipolar Brother Mental disorder ADHD, bipolar Social History Smoking/Tobacco Use Status: Current every day Tobacco Type: cigarettes Smoking risk assessment performed?: Yes Alcohol Intake: current Alcohol Intake frequency: holidays/special occasions only Alcohol type: hard liquor Drug use: Occasionally Substance use type: marijuana, crack/cocaine and heroin Details: daily marijuana/methadone clinic Housing: apartment Do you feel safe at home: Yes Do you feel safe in your relationship?: Yes
[2023-12-23 14:34] LABS: Abs Immature Grans 0.02 10^3/uL (0.0-0.06); Absolute Basophil Count 0.04 10^3/uL (0.0-0.2); Absolute Eosinophil Count 0.07 10^3/uL (0.0-0.7); Absolute Lymphocyte Count 1.62 10^3/uL (1.2-3.4); Absolute Monocyte Count 0.56 10^3/uL (0.1-0.8); Absolute Neutrophil Count 6.51 10^3/uL (1.2-6.7); Basophils % 0.5 %; Eosinophils % 0.8 %; HCT 36.6 % (40.0-50.0); HGB 12.3 g/dL (13.5-17.5); Immature Grans % 0.2 %; Lymphocytes % 18.4 %; MCH 29.4 pg (27.0-33.0); MCHC 33.6 % (32.0-36.0); MCV 87 fL (80-95); MPV 8.5 fL (8.0-11.0); Monocytes % 6.3 %; Neutrophils % 73.8 %; Platelet Count 259 10^3/uL (130-400); RBC 4.19 10^6/uL (4.36-5.78); RDW 13.5 % (11.8-14.1); WBC 8.82 10^3/uL (4.4-10.8)
[2023-12-23 14:46] VITALS: RESP 5
[2023-12-23] MEDS: Albuterol 2.5 MG/3 ML INH SOLN VIAL UPD (14:46)
[2023-12-23 14:52] LABS: ALT 20 U/L (16-63); AST 29 U/L (15-37); Albumin 3.3 g/dL (3.4-5.0); Alkaline Phosphatase 76 U/L (46-116); Anion Gap 7.6 mmol/L (3-11); BUN 17 mg/dL (7-18); Bilirubin, Total 0.71 mg/dL (0.2-1.0); CO2 31.4 mmol/L (21.0-32.0); CREATININE 0.9 mg/dL (0.70-1.30); Calcium 8.5 mg/dL (8.5-10.1); Chloride 99 mmol/L (98-107); Estimated GFR 114.22 (mL/min/1.73m2); Glucose 124 mg/dL (74-106); Magnesium 1.6 mg/dL (1.8-2.4); Potassium 3.9 mmol/L (3.5-5.1); Sodium 138 mmol/L (136-145); Total Protein 7.4 g/dL (6.4-8.2)
[2023-12-23 15:00] LABS: ETHANOL BLOOD < 3.0 mg/dL (<10)
== END 2023-12-23 15:14 | disposition home or self-care (01) ==
LOC: ER 15:48
PROVIDERS: Emergency Provider Emergency Medicine
DX: R41.82 Altered mental status, unspecified (principal); F19.90 Other psychoactive substance use, unspecified, uncomplicated
CPT/HCPCS: 36415; 80053; 94640; 99283; 80320; 83735; 85025; J7613

== ENCOUNTER 2023-12-26 07:14 | Emergency (ER) | payer SELFPAY ==
[2023-12-26 07:18] VITALS: BP 112/70; PULSE 102; RESP 20; TEMP 36.4; O2SAT 95
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
[2023-12-26] MEDS: Lidocaine 5% Patch 1 PATCH TP (08:35)
== END 2023-12-26 08:50 | disposition home or self-care (01) ==
PROVIDERS: Emergency Provider Emergency Medicine
DX: S20.211A Contusion of right front wall of thorax, initial encounter (principal); Y04.2XXA Assault by strike against or bumped into by another person, initial encounter; M25.511 Pain in right shoulder
CPT/HCPCS: 99284; 71046; 71100; 73030; 99283

== ENCOUNTER 2024-09-13 09:44 | Emergency (ER) | payer MEDICAID, SELFPAY ==
--- NOTE | 2024-09-13 09:45 | RT.EKG_ITS ---
APPROVED REPORT Exam: Resting ECG Reason for Exam: chest pain Patient Location: E HR:98 bpm ECG Measurements Heart Rate 98 AXIS MT 122 P 80 QRSd 82 QRS 84 QT 336 T 35 QTc 430 Conclusion Sinus rhythm...normal P axis, V-rate 60- 99 Right atrial enlargement...P>0.25mV 2 lds or<-0.24mV aVR/aVL No Occlusion MD
[2024-09-13 09:49] VITALS: BP 122/78; PULSE 100; RESP 18; TEMP 36.8; O2SAT 96
[2024-09-13 09:54] VITALS: BP 122/78; PULSE 100; RESP 18; TEMP 36.8; O2SAT 96
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
[2024-09-13] MEDS: Albuterol HFA 8 GM 60 PUFF INH IH (10:28)
[2024-09-13 10:45] LABS: Troponin I < 4 ng/L (<or=76)
--- NOTE | 2024-09-13 10:45 | DI.RAD_ITS ---
Exam(s) XR CHEST 2V PA LATERAL EXAM: XR CHEST 2V PA LATERAL CLINICAL HISTORY: Cough. TECHNIQUE: 2D digital imaging was performed. COMPARISON: CR,XR XR CHEST 2V PA LATERAL from 01/24/2019 CR XR RIBS RT PA CHEST 3V from 12/26/2023 FINDINGS: 2 views: Heart size is normal. The mediastinum is not widened. Lungs are again noted be hyperinflated. On the lateral view there are increased markings over the he art shadow, similar to previous infra bubbly related to some mild infiltrate of chronic-type infiltra te in the right middle lobe. I note that there was more extensive infiltrate in the right middle lob e evident on images of January 2019 and this may be remnant scarring as it is unchanged from plain films of 12/26/2023 IMPRESSION: No acute pulmonary findings.Chronic right middle lobe scarring or infiltrate related to prior larger infiltrate which was evident in 2019. There are no pleural effusions. DATA REPOSITORY: RADIATION DOSE DELIVERED:
--- NOTE | 2024-09-13 10:58 | DI.VRAD_ITS ---
PROCEDURE INFORMATION: Exam: XR Chest Exam date and time: 09/13/2024 10:46 AM Age: 34 years old Clinical indication: Cough TECHNIQUE: Imaging protocol: Radiologic exam of the chest. Views: 2 views. COMPARISON: CR XR RIBS RT PA CHEST 3V 12/26/2023 7:58 AM FINDINGS: Lungs: Unremarkable. No consolidation. Pleural spaces: Unremarkable. No pleural effusion. No pneumothorax. Heart/Mediastinum: Unremarkable. No cardiomegaly. Bones/joints: Unremarkable. IMPRESSION: No acute cardiopulmonary process. Dictated and Authenticated by: Rancho Cutler MD. Orderin Sherrill Villafana MD
== END 2024-09-13 11:26 | disposition home or self-care (01) ==
PROVIDERS: Emergency Provider Registered Nurse Emergency
DX: J06.9 Acute upper respiratory infection, unspecified (principal); Z87.09 Personal history of other diseases of the respiratory system
CPT/HCPCS: 99283; 99284; 36415; 93005; 71046; 84484; 93010

== ENCOUNTER 2024-10-12 09:04 | Emergency (ER) | payer MEDICAID, SELFPAY ==
[2024-10-12 09:07] VITALS: BP 106/72; PULSE 87; RESP 18; TEMP 36.8; O2SAT 95
--- NOTE | 2024-10-12 09:15 | DI.RAD_ITS ---
Exam(s) XR WRIST RT COMPLETE EXAM: XR WRIST RT COMPLETE CLINICAL HISTORY: cellulitis, ?foreign body. TECHNIQUE: 2D digital imaging was performed of the right wrist. Three views were obtained. PA, lat eral and oblique views were obtained. COMPARISON: No exams were available for comparison FINDINGS: BONES: No acute fracture is present. No bony destructive lesion is seen. JOINTS: The carpal bones are normally aligned. SOFT TISSUE: There is soft tissue swelling on the dorsum of the wrist. No soft tissue gas or radiopa que foreign body is identified. IMPRESSION: No acute fracture, dislocation or radiopaque foreign body. DATA REPOSITORY: RADIATION DOSE DELIVERED:
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
[2024-10-12 09:43] VITALS: BP 108/68; PULSE 89; RESP 18; TEMP 35.6; O2SAT 99
[2024-10-12] MEDS: Amox. 875/Clav. 125, 2 TABS/BTL 1 TAB PO (10:04)
[2024-10-12] MEDS: Amoxicillin 875/Clav. 125 TAB PO (10:05)
--- NOTE | 2024-10-12 10:23 | NUR.NOTE ---
Nursing Note: As patient was leaving the ED, he stopped in Day surgery waiting area. Patient was attempting to take a wheelchair. I asked patient to leave wheelchair in the dept. I also asked that patient to continue leaving the facility. Patient came angry with me stating that he was going to file a complaint.
== END 2024-10-12 10:14 | disposition home or self-care (01) ==
LOC: ER 10:14
PROVIDERS: Emergency Provider Emergency Medicine
DX: L03.113 Cellulitis of right upper limb (principal)
CPT/HCPCS: 99283 ×2; 73110

== ENCOUNTER 2024-10-31 11:31 | Outpatient (REF) | payer MEDICAID, SELFPAY | END 2024-10-31 11:32 | disposition home or self-care (01) | LOC: LBN 11:31 | PROVIDERS: Visit Provider Physician Assistant Medical | DX: L08.9 Local infection of the skin and subcutaneous tissue, unspecified (principal) | CPT/HCPCS: 87077; 87070; 87186; 87205 ==

== ENCOUNTER 2024-11-03 09:18 | Emergency (ER) | payer MEDICAID, SELFPAY ==
[2024-11-03 09:26] VITALS: BP 113/70; PULSE 97; RESP 18; TEMP 37.2; O2SAT 96
[2024-11-03] MEDS: Amoxicillin 875/Clav. 125 TAB PO (09:58)
[2024-11-03] MEDS: Doxycycline Hyclate 100 MG CAP PO (09:58)
--- NOTE | 2024-11-03 10:16 | W.ED.GENAD ---
Discharge Plan Disposition Patient Disposition: Home Condition: Stable Discharge Details Clinical Impression: Right forearm cellulitis, Lymphangitis, Skin ulcer Primary Care Provider: Unknown,Unknown ED Provider: Ranjit Concepcion Home Meds and New Rx's Prescriptions: New doxycycline hyclate 100 mg tablet 100 mg PO BID Qty: 19 0RF Continued methadone (bulk) 100 GM powder 150 g Miscellaneous DAILY Patient Comments: [facility] Rx Instructions: BAART. Mixed with water epinephrine 0.3 mg/0.3 mL auto-injector 0.3 ml SC ONCE PRN (Reason: anaphylaxis) Qty: 2 0RF Rx Instructions: as a single dose; may repeat once (DME) miscellaneous medical supply Misc See Rx Instructions .Route Qty: 1 0RF Rx Instructions: As directed amoxicillin-pot clavulanate 875-125 mg tablet 1 tab PO BID Qty: 19 0RF albuterol sulfate 90 mcg/actuation HFA aerosol inhaler 2 puff inhalation Q6H PRNQty: 1 0RF naloxone [Narcan] 4 mg/actuation spray,non-aerosol 4 mg intranasal Q2M PRNQty: 2 0RF Rx Instructions: spray 1 dose into ONE nostril; alternate nostrils w each dose until help arrives gabapentin 800 mg tablet 800 mg PO QID Discharge Instructions Instructions: Cellulitis (Skin Infection), Adult ED Additional Instructions: Please take full course of antibiotics as prescribed. You should expect improvement in the next couple days on antibiotics. Please follow-up with your primary care physician. Return to the ER immediately for any worsening or new concerning symptoms including increased redness, increased pain, increased warmth, wounds not improving. HPI General Mode of arrival: ambulatory. Date/Time Provider Initiated Documentation: 11/03/24 09:21. Limitations to Documentation: no limitations. Information obtained by: patient. HPI Narrative: HISTORY OF PRESENT ILLNESS Patient presents with chief complaint of rash. Previously seen in the emergency department on 10/12/2024 for a single lesion right hand, was prescribed Augmentin and unable to fill prescription. Now has new lesions on bilateral hands and right forearm with redness tracking up right arm. No associated fever. Lesions generally non-painful except one causing mild discomfort right forearm. Patient notes prior IV drug use but has not used in the past 4 months. Related Data Home Medications ?Medication ?Instructions ?Recorded ?Confirmed methadone (bulk) 100 % powder 150 g miscellaneous DAILY 07/05/15 11/03/24 epinephrine 0.3 mg/0.3 mL 0.3 ml subcut ONCE PRN anaphylaxis 09/05/22 11/03/24 injection, auto-injector #2 ea [employer] supply #1 ea 09/05/22 11/03/24 albuterol sulfate 90 mcg/actuation 2 puff inhalation Q6H PRN #1 g 12/23/23 11/03/24 aerosol inhaler naloxone 4 mg/actuation nasal 4 mg intranasal Q2M PRN #2 ea 12/23/23 11/03/24 spray (Narcan) gabapentin 800 mg tablet 800 mg PO QID 10/12/24 11/03/24 amoxicillin 875 mg-potassium 1 tab PO BID #19 tabs 11/03/24 clavulanate 125 mg tablet doxycycline hyclate 100 mg tablet 100 mg PO BID #19 tabs 11/03/24 Previous Rx's ?Medication ?Instructions ?Recorded epinephrine 0.3 mg/0.3 mL 0.3 ml subcut ONCE PRN anaphylaxis 09/05/22 injection, auto-injector #2 ea [employer] supply #1 ea 09/05/22 albuterol sulfate 90 mcg/actuation 2 puff inhalation Q6H PRN #1 g 12/23/23 aerosol inhaler naloxone 4 mg/actuation nasal 4 mg intranasal Q2M PRN #2 ea 12/23/23 spray (Narcan) amoxicillin 875 mg-potassium 1 tab PO BID #19 tabs 11/03/24 clavulanate 125 mg tablet doxycycline hyclate 100 mg tablet 100 mg PO BID #19 tabs 11/03/24 Allergies Allergy/AdvReac Type Severity Reaction Status Date / Time venom-honey bee (bee venom Allergy Severe Anaphylaxsi Verified 11/03/24 09:30 (honey bee)) s General Stated Complaint: RashLesion ROXANNA: 4 Review of Systems All systems reviewed & are unremarkable except as noted in HPI and below Constitutional Constitutional: Denies fever(s) Exam Const General: cooperative and no acute distress HENMT Mouth: moist mucous membranes Resp Auscultation: clear to auscultation bilaterally, no rales, no rhonchi and no wheezes Cardio Rate: regular rate and not tachycardic Rhythm: regular rhythm Heart Sounds: no murmurs GI Palpation: soft, not firm, no guarding, no masses, not rigid and nontender Skin Rashes: rashes noted Course Vital Signs Vital signs: Vital Signs Temperature 37.2 C 11/03/24 09:26 Pulse 97 H 11/03/24 09:26 Respiratory Rate 18 11/03/24 09:26 Blood Pressure 113/70 11/03/24 09:26 Pulse Oximetry 96 11/03/24 09:26 Temperature 37.2 C 11/03/24 09:26 Temperature Source Oral 11/03/24 09:26 Pulse 97 H 11/03/24 09:26 Respiratory Rate 18 11/03/24 09:26 Blood Pressure 113/70 11/03/24 09:26 Blood Pressure Position Sitting 11/03/24 09:26 Pulse Oximetry 96 11/03/24 09:26 Oxygen Delivery Method Room Air 11/03/24 09:26 Oxygen Flow Rate 0 11/03/24 09:26 Medical Decision Making ASSESSMENT AND PLAN Initial Assessment: Multiple hand ulcers, one nickel-sized and weeping on left hand, similar ulcers on right hand, swollen, mildly indurated ulcer on right forearm with proximal streaking consistent with lymphangitis. Differential Diagnosis: - Infected ulcers: Multiple hand and forearm ulcers, swelling, induration, streaking. Administer antibiotics today. Patient to be referred to [facility] for medication access. ED Course: - Augmentin and doxycycline administered. I spoke with communicated with committee connections will be happy to see the patient and assist in arranging payment assistance for outpatient antibiotics. Final Assessment: Multiple infected hand and forearm ulcers with lymphangitis. Administered antibiotics. Consulted hospice spiritual care coordinator for medication access. Clinical Impression: - Infected ulcers Disposition: - Discharge home. Administered antibiotics. Return if symptoms worsen or signs of sepsis develop. - Consult hospice spiritual care coordinator for medication access. - Patient is homeless and has significant financial challenges which is complicating his treatment This document was written with the assistance of MARIJA Blanton. The patient consented to its use. PFSH All Active Problems (Updated 11/03/24 @ 10:20 by Ranjit Concepcion MD) Skin ulcer (Acute) Lymphangitis (Acute) Right forearm cellulitis (Acute) Cellulitis of right wrist (Acute) PTSD (post-traumatic stress disorder) (Acute) TBI (traumatic brain injury) (Acute) Urethral disorder (Acute) No-show for appointment (Acute) Medical History Rosacea Chronic rhinitis Mood disorder Asthma History of sexually transmitted disease Hep C, chlamydia Tobacco use disorder Illiteracy Mental health disorder Bipolar ?schizophrenia Hepatitis C Opiate dependence IV drug abuse Surgical History Knee Surgery, Right Family History Mother Diabetes Personal history of malignant neoplasm Spine? Father Substance abuse Alcoholism Diabetes Personal history of malignant neoplasm ??? Sister Mental disorder ADHD, bipolar Brother Mental disorder ADHD, bipolar Social History Smoking/Tobacco Use Status: Current every day Tobacco Type: cigarettes Smoking risk assessment performed?: Yes Alcohol Intake: current Alcohol Intake frequency: holidays/special occasions only Alcohol type: hard liquor Drug use: Occasionally Substance use type: former substance user, marijuana, crack/cocaine and heroin Details: daily marijuana/methadone clinic 4 days sober 09/13/24 Housing: apartment Do you feel safe at home: Yes Do you feel safe in your relationship?: Yes
== END 2024-11-03 10:37 | disposition home or self-care (01) ==
PROVIDERS: Emergency Provider Student in an Organized Health Care Education/Training Program
DX: L03.113 Cellulitis of right upper limb (principal); L03.123 Acute lymphangitis of right upper limb
CPT/HCPCS: 99284; 99283

== ENCOUNTER 2024-11-14 09:29 | Emergency (ER) | payer MEDICAID, SELFPAY ==
--- NOTE | 2024-11-14 09:30 | RT.EKG_ITS ---
APPROVED REPORT Exam: Resting ECG Reason for Exam: Methadone need EKG Patient Location: E HR:88 bpm ECG Measurements Heart Rate 88 AXIS OH 126 P 84 QRSd 85 QRS 79 QT 350 T 63 QTc 423 Conclusion Sinus rhythm...normal P axis, V-rate 60- 99 Right atrial enlargement...P>0.25mV 2 lds or<-0.24mV aVR/aVL No Occlusion OH
[2024-11-14 09:31] VITALS: BP 95/66; PULSE 81; RESP 18; TEMP 36.8; O2SAT 95
--- NOTE | 2024-11-14 10:42 | ED.GENADUL_ITS ---
Discharge Plan Disposition Patient Disposition: Home Discharge Details Clinical Impression: History of ECG Primary Care Provider: Unknown,Unknown ED Provider: Shayne Card Home Meds and New Rx's Prescriptions: Continued methadone (bulk) 100 GM powder 150 g Miscellaneous DAILY Patient Comments: [facility] Rx Instructions: BAART. Mixed with water epinephrine 0.3 mg/0.3 mL auto-injector 0.3 ml SC ONCE PRN (Reason: anaphylaxis) Qty: 2 0RF Rx Instructions: as a single dose; may repeat once (DME) miscellaneous medical supply Misc See Rx Instructions .Route Qty: 1 0RF Rx Instructions: As directed doxycycline hyclate 100 mg tablet 100 mg PO BID Qty: 19 0RF amoxicillin-pot clavulanate 875-125 mg tablet 1 tab PO BID Qty: 19 0RF albuterol sulfate 90 mcg/actuation HFA aerosol inhaler 2 puff inhalation Q6H PRNQty: 1 0RF naloxone [Narcan] 4 mg/actuation spray,non-aerosol 4 mg intranasal Q2M PRNQty: 2 0RF Rx Instructions: spray 1 dose into ONE nostril; alternate nostrils w each dose until help arrives gabapentin 800 mg tablet 800 mg PO QID Discharge Instructions Additional Instructions: You were seen in the emergency department for your EKG. Your EKG showed sinus rhythm at a rate of 88. Your QTc was within normal limits. Please return to the emergency department if you develop chest pain shortness of breath nausea or vomiting. HPI General Date/Time Provider Initiated Documentation: 11/14/24 09:31 . HPI Narrative: [facility] This is an overall well-appearing slight 34-year-old male with mild hypotension but normothermic and not tachycardic with request for ECG. ECG reassuring with no blocks normal QTc no interventricular conduction delay. MN within normal limits. Patient had no complaints of chest pains I did not obtain a troponin. No dysuria or frequency to suggest UTI. No nausea nor vomiting. No shortness of breath to suggest PE and patient is PERC negative. I told patient that his QTc appeared reassuring. He had no complaints. We discussed return for any shortness of breath chest pain or any other concerns. He was discharged with an empiric trial of expectant outpatient management. He had a prior ECG in our system showing his QTc was also within normal limits. He has had similar blood pressures in the past. HPI Patient arrives via private vehicle with no complaints. He was reportedly sent by [facility] for an ECG. He has no chest pain nausea vomiting fevers chills or shortness of breath. Exam General: Well-appearing in no acute distress speaking in complete sentences. Head: Normocephalic, atraumatic. Eye: Extraocular eye movements intact. No conjunctival injection. No scleral icterus. Ear, nose, mouth, throat: Grossly normal inspection. Normal voice, handling secretions normally. Neck: Trachea midline. Cardiovascular: Well-perfused distal extremities. Respiratory: Nonlabored respiration. Gastrointestinal: Nondistended abdomen. Musculoskeletal: No edema. Moving all 4 extremities spontaneously. Skin: Normal for age and race, grossly normal temperature and turgor. No acute rash. Neurologic: Alert and appropriate, no apparent acute deficits. Psychiatric: Mood and manner are appropriate. Grooming and personal hygiene are appropriate. Related Data Home Medications ?Medication ?Instructions ?Recorded ?Confirmed methadone (bulk) 100 % powder 150 g [employer] 07/05/15 11/03/24 epinephrine 0.3 mg/0.3 mL 0.3 ml subcut ONCE PRN anaph ylaxis 09/05/22 11/03/24 injection, auto-injector #2 ea [employer] supply #1 ea 09/05/22 11/03/24 albuterol sulfate 90 mcg/actuation 2 puff inhalation Q 6H PRN #1 g 12/23/23 11/03/24 aerosol inhaler naloxone 4 mg/actuation nasal 4 mg intranasal Q2M PRN #2 ea 12/23/23 11/03/24 spray (Narcan) gabapentin 800 mg tablet 800 mg PO QID 10/12/2411/03 amoxicillin 875 mg-potassium 1 tab PO BID #19 tabs clavulanate 125 mg tablet doxycycline hyclate 100 mg tablet 100 mg PO BID #19 ta bs 11/03/24 Previous Rx's ?Medication ?Instructions ?Recorded epinephrine 0.3 mg/0.3 mL 0.3 ml subcut ONCE PRN anaph ylaxis 09/05/22 injection, auto-injector #2 ea [employer] supply #1 ea 09/05/22 albuterol sulfate 90 mcg/actuation 2 puff inhalation Q 6H PRN #1 g 12/23/23 aerosol inhaler naloxone 4 mg/actuation nasal 4 mg intranasal Q2M PRN #2 ea 12/23/23 spray (Narcan) amoxicillin 875 mg-potassium 1 tab PO BID #19 tabs clavulanate 125 mg tablet doxycycline hyclate 100 mg tablet 100 mg PO BID #19 ta bs 11/03/24 Allergies Allergy/AdvReac Type Severity Reaction Status Date / Time venom-honey bee (bee venom Allergy Severe Anaphylaxsi Verified 11/03/24 09:30 (honey bee)) s General Stated Complaint: [employer] ROXANNA: 4 Course Vital Signs Vital signs: Vital Signs Temperature 36.8 C 11/14/24 09:31 Pulse 81 11/14/24 09:31 Respiratory Rate 18 11/14/24 09:31 Blood Pressure 95/66 L 11/14/24 09:31 Pulse Oximetry 95 11/14/24 09:31 Temperature 36.8 C 11/14/24 09:31 Temperature Source Oral 11/14/24 09:31 Pulse 81 11/14/24 09:31 Respiratory Rate 18 11/14/24 09:31 Blood Pressure 95/66 L 11/14/24 09:31 Pulse Oximetry 95 11/14/24 09:31 PFSH All Active Problems (Updated 11/14/24 @ 10:42 by Shayne Card MD) History of ECG (Acute) Skin ulcer (Acute) Lymphangitis (Acute) Right forearm cellulitis (Acute) PTSD (post-traumatic stress disorder) (Acute) TBI (traumatic brain injury) (Acute) Urethral disorder (Acute) No-show for appointment (Acute) Medical History Rosacea Chronic rhinitis Mood disorder Asthma History of sexually transmitted disease Hep C, chlamydia Tobacco use disorder Illiteracy Mental health disorder Bipolar ?schizophrenia Hepatitis C Opiate dependence IV drug abuse Surgical History Knee Surgery, Right Family History Mother Diabetes Personal history of malignant neoplasm Spine? Father Substance abuse Alcoholism Diabetes Personal history of malignant neoplasm ??? Sister Mental disorder ADHD, bipolar Brother Mental disorder ADHD, bipolar Social History Smoking/Tobacco Use Status: Current every day Tobacco Type: cigarettes Smoking risk assessment performed?: Yes Alcohol Intake: current Alcohol Intake frequency: holidays/special occasions only Alcohol type: hard liquor Drug use: Occasionally Substance use type: former substance user, marijuana, crack/cocaine and heroin Details: daily marijuana/methadone clinic 3 months sober 11/14/24 Housing: apartment Do you feel safe at home: Yes Do you feel safe in your relationship?: Yes
== END 2024-11-14 10:54 | disposition home or self-care (01) ==
PROVIDERS: Emergency Provider Emergency Medicine
DX: F11.20 Opioid dependence, uncomplicated (principal); F17.210 Nicotine dependence, cigarettes, uncomplicated
CPT/HCPCS: 93005; 99283; 93010

== ENCOUNTER 2024-11-30 18:32 | Emergency (ER) | payer MEDICAID, SELFPAY ==
[2024-11-30 18:37] VITALS: BP 102/69; PULSE 70; RESP 16; TEMP 36.7; O2SAT 95
--- NOTE | 2024-11-30 18:45 | DI.RAD_ITS ---
Exam(s) XR WRIST RT COMPLETE EXAM: XR WRIST RT COMPLETE CLINICAL HISTORY: pain. TECHNIQUE: 2D digital imaging was performed. COMPARISON: CR XR WRIST RT COMPLETE from 10/12/2024 FINDINGS: 3 views No evidence of acute fracture nor dislocation nor significant ulnar variance. A thin sclerotic lung to knee orientated line in the distal radius is unchanged from 10/12/2024. Scaphoid and scapholunate distance are normal. No obvious degenerative changes in the carpal row bones. IMPRESSION: There is a thin sclerotic benign-appearing line in the distal radius which may be variant of normal. No obvious fractures. If clinically indicated further study with MRI of the wrist can be performed for added sensitivity and specificity. DATA REPOSITORY: RADIATION DOSE DELIVERED:
--- NOTE | 2024-11-30 19:09 | ED.GENADUL_ITS ---
Discharge Plan Disposition Patient Disposition: Home Condition: Stable Discharge Details Clinical Impression: Right wrist sprain Primary Care Provider: Unknown,Unknown ED Provider: Staci Simpson Home Meds and New Rx's Prescriptions: No Action epinephrine 0.3 mg/0.3 mL auto-injector 0.3 ml SC ONCE PRN (Reason: anaphylaxis) Qty: 2 0RF Rx Instructions: as a single dose; may repeat once Ensure Active Protein-Muscle Liquid See Rx Instructions .ROUTE .COMPLEX Qty: 30446 0RF Rx Instructions: One can three times daily.; (72 cans) divalproex [Depakote ER] 250 mg tablet extended release 24 hr 250 mg PO BID Qty: 60 1RF methadone (bulk) 100 GM powder 150 g Miscellaneous DAILY Patient Comments: [facility] Rx Instructions: BAART. Mixed with water (DME) [employer] Mis See Rx Instructions .Route Qty: 1 0RF Rx Instructions: As directed albuterol sulfate 90 mcg/actuation HFA aerosol inhaler 2 puff inhalation Q6H PRNQty: 1 0RF naloxone [Narcan] 4 mg/actuation spray,non-aerosol 4 mg intranasal Q2M PRNQty: 2 0RF Rx Instructions: spray 1 dose into ONE nostril; alternate nostrils w each dose until help arrives gabapentin 800 mg tablet 800 mg PO QID Discharge Instructions Additional Instructions: Wear splint for comfort. Ice and elevate. Take Tylenol and/or Motrin as needed for pain. Follow-up with orthopedics if not improved. Referrals: ISSA Martínez [RN FOR [facility] OR, Medicine] - 1 week Clinical Impression: Right wrist sprain Discharge Data Discharge Physician: Staci Simpson [facility] General Date/Time Provider Initiated Documentation: 11/30/24 18:51 . HPI Narrative: 34-year-old right-handed male presents for evaluation of right wrist pain. Patient states that he has been having some pain to the dorsum of his right wrist for the last day or 2. He denies any direct trauma. No numbness or tingling. He was using it a lot recently. No redness or swelling. No fevers or chills. Related Data Home Medications ?Medication ?Instructions ?Recorded ?Confirmed methadone (bulk) 100 % powder 150 g miscellaneous PATRICIA Y 07/05/15 11/30/24 miscellaneous medical supply #1 ea 09/05/22 11/30/24 albuterol sulfate 90 mcg/actuation 2 puff inhalation Q 6H PRN #1 g 12/23/23 11/30/24 aerosol inhaler naloxone 4 mg/actuation nasal 4 mg intranasal Q2M PRN #2 ea 12/23/23 11/30/24 spray (Narcan) gabapentin 800 mg tablet 800 mg PO QID 10/12/2411/30 epinephrine 0.3 mg/0.3 mL 0.3 ml subcut ONCE PRN anaph ylaxis 11/21/24 11/30/24 injection, auto-injector #2 ea food supplemt, lactose-reduced See Rx Instructions .[place] 11/21/24 11/30/24 (Ensure Active Protein-Muscle oral .COMPLEX #17,064 mL liquid) divalproex 250 mg tablet,extended 250 mg PO BID #60 ta bs 11/25/24 11/30/24 release 24 hr (Depakote ER) Previous Rx's ?Medication ?Instructions ?Recorded miscellaneous medical supply #1 ea 09/05/22 albuterol sulfate 90 mcg/actuation 2 puff inhalation Q 6H PRN #1 g 12/23/23 aerosol inhaler naloxone 4 mg/actuation nasal 4 mg intranasal Q2M PRN #2 ea 12/23/23 spray (Narcan) epinephrine 0.3 mg/0.3 mL 0.3 ml subcut ONCE PRN anaph ylaxis 11/21/24 injection, auto-injector #2 ea food supplemt, lactose-reduced See Rx Instructions .[place] 11/21/24 (Ensure Active Protein-Muscle oral .COMPLEX #17,064 mL liquid) divalproex 250 mg tablet,extended 250 mg PO BID #60 ta bs 11/25/24 release 24 hr (Depakote ER) Allergies Allergy/AdvReac Type Severity Reaction Status Date / Time venom-honey bee (bee venom Allergy Severe Anaphylaxsi Verified 11/30/24 18:40 (honey bee)) s General Stated Complaint: Orthopedic ROXANNA: 3 Review of Systems Narrative: Remainder of review of systems otherwise negative except for as noted in the HPI x 5. Exam Narrative Exam Narrative: General: non-toxic, no respiratory distress, comfortable HEENT: normocephalic, atraumatic, lids and lashes normal, PERRL, EOMI, anicteric sclera, no conjunctival injection, moist oral mucosa Musculoskeletal: Diffuse tenderness to palpation dorsum right wrist without erythema or warmth, 2+ radial pulses, sensation intact, able to fully range fingers, wrist, elbow, otherwise full range of motion of arms and legs, no tenderness to palpation. no clubbing, cyanosis, or edema Neurologic: appropriate for age, strength normal Psych: alert and oriented Skin: no petechiae, no lesions, warm and dry Course Vital Signs Vital signs: Vital Signs Temperature 36.7 C 11/30/24 18:37 Pulse 70 11/30/24 18:37 Respiratory Rate 16 11/30/24 18:37 Blood Pressure 102/69 11/30/24 18:37 Pulse Oximetry 95 11/30/24 18:37 Temperature 36.7 C 11/30/24 18:37 Temperature Source Oral 11/30/24 18:37 Pulse 70 11/30/24 18:37 Respiratory Rate 16 11/30/24 18:37 Blood Pressure 102/69 11/30/24 18:37 Blood Pressure Position Sitting 11/30/24 18:37 Pulse Oximetry 95 11/30/24 18:37 Oxygen Delivery Method Room Air 11/30/24 18:37 Oxygen Flow Rate 0 11/30/24 18:37 Pain Level 5 11/30/24 18:37 Medical Decision Making 34-year-old right-handed male presents for evaluation of atraumatic right wrist pain. He has been moving a lot of materials recently and this may be a strain. Will check x-ray. X-rays visualized by myself is negative for fracture. Patient is placed in a wrist splint for comfort. He will take Tylenol and/or Motrin as needed for pain. I recommended follow-up with orthopedics if not improved. He understands occasions to return. [facility] All Active Problems (Updated 11/30/24 @ 19:14 by Staci Simpson MD) Right wrist sprain (Acute) Food insecurity (Acute) Housing insecurity (Acute) Bipolar disorder with psychotic features (Acute) Malnutrition (Acute) Neuropathy (Acute) Bee sting allergy (Acute) ADHD (Acute) History of ECG (Acute) Skin ulcer (Acute) Lymphangitis (Acute) Right forearm cellulitis (Acute) PTSD (post-traumatic stress disorder) (Acute) TBI (traumatic brain injury) (Acute) Urethral disorder (Acute) No-show for appointment (Acute) Medical History Rosacea Chronic rhinitis Mood disorder Asthma History of sexually transmitted disease Hep C, chlamydia Tobacco use disorder Illiteracy Mental health disorder Bipolar ?schizophrenia Hepatitis C Opiate dependence IV drug abuse Surgical History Knee Surgery, Right Family History Mother Diabetes Personal history of malignant neoplasm Spine? Father Substance abuse Alcoholism Diabetes Personal history of malignant neoplasm ??? Sister Mental disorder ADHD, bipolar Brother Mental disorder ADHD, bipolar Social History Smoking/Tobacco Use Status: Current every day Tobacco Type: cigarettes Smoking risk assessment performed?: Yes Alcohol Intake: current Alcohol Intake frequency: holidays/special occasions only Alcohol type: hard liquor Drug use: Occasionally Substance use type: former substance user, marijuana, crack/cocaine and heroin Details: daily marijuana/methadone clinic 3 months sober 11/14/24 Housing: apartment Do you feel safe at home: Yes Do you feel safe in your relationship?: Yes
--- NOTE | 2024-11-30 20:15 | DI.VRAD_ITS ---
PROCEDURE INFORMATION: Exam: XR Right Wrist Exam date and time: 11/30/2024 7:00 PM Age: 34 years old Clinical indication: Pain; Wrist; Right TECHNIQUE: Imaging protocol: Radiologic exam of the right wrist. Views: 3 or more views. COMPARISON: CR XR WRIST RT COMPLETE 10/12/2024 9:48 AM FINDINGS: Bones/joints: There is an area of linear sclerosis at the distal right radius which was present previously. Bone mineralization is age-appropriate. There is no evidence of fracture. No evidence of dislocation. The joint spaces are adequately preserved; no significant degenerative narrowing and no bony erosion seen. 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 Soft tissues: No radiopaque foreign body present. There is soft tissue swelling present. IMPRESSION: 1. No acute osseous abnormality. 2. There is soft tissue swelling present. Dictated and Authenticated by: Bill Sprague MD. Orderin Calvin Small MD
--- NOTE | 2024-12-03 15:56 | NUR.NOTE ---
Accessed Pt chart to print a face sheet for [facility] paperwork
== END 2024-11-30 19:40 | disposition home or self-care (01) ==
PROVIDERS: Emergency Provider Emergency Medicine Emergency Medical Services
DX: S63.501A Unspecified sprain of right wrist, initial encounter (principal); F17.210 Nicotine dependence, cigarettes, uncomplicated; X58.XXXA Exposure to other specified factors, initial encounter
CPT/HCPCS: 99283; 73110

== ENCOUNTER 2025-02-10 07:37 | Emergency (ER) | payer MEDICAID, SELFPAY ==
[2025-02-10 07:38] VITALS: BP 142/83; PULSE 101; RESP 15; TEMP 37; O2SAT 100
[2025-02-10 07:45] VITALS: BP 142/83; PULSE 101; RESP 15; TEMP 37; O2SAT 100
--- NOTE | 2025-02-10 07:49 | ED.GENADUL_ITS ---
Discharge Plan Disposition Patient Disposition: Home Condition: Stable Discharge Details Clinical Impression: Superficial skin infection Primary Care Provider: Unknown,Unknown ED Provider: Rosalina Castro Home Meds and New Rx's Prescriptions: New mupirocin 2 % Ointment 1 applic topical TID 5 Days Qty: 0 0RF No Action epinephrine 0.3 mg/0.3 mL auto-injector 0.3 ml SC ONCE PRN (Reason: anaphylaxis) Qty: 2 0RF Rx Instructions: as a single dose; may repeat once Ensure Active Protein-Muscle Liquid See Rx Instructions .ROUTE .COMPLEX Qty: 20780 0RF Rx Instructions: One can three times daily.; (72 cans) divalproex [Depakote ER] 250 mg tablet extended release 24 hr 250 mg PO BID Qty: 60 1RF methadone (bulk) 100 GM powder 200 g Miscellaneous DAILY Patient Comments: [facility] Rx Instructions: BAART. Mixed with water (DME) miscellaneous medical supply Misc See Rx Instructions .Route Qty: 1 0RF Rx Instructions: As directed albuterol sulfate 90 mcg/actuation HFA aerosol inhaler 2 puff inhalation Q6H PRNQty: 1 0RF naloxone [Narcan] 4 mg/actuation spray,non-aerosol 4 mg intranasal Q2M PRNQty: 2 0RF Rx Instructions: spray 1 dose into ONE nostril; alternate nostrils w each dose until help arrives gabapentin 800 mg tablet 800 mg PO QID Discharge Instructions Instructions: Mupirocin Additional Instructions: You were seen in the emergency department today for evaluation after popping a pimple inside of your nostril. The area does have a scab on it, and you should put mupirocin ointment on the area 3 times per day for the next 5 days. This is a topical antibiotic, you do not need to take an oral antibiotic. This medication was provided to you in the emergency department. I also provided you with a referral to establish with a primary care provider. Please continue to use Tylenol and ibuprofen as needed for pain, and maintain good hydration and nutrition. Please follow-up with your primary care provider in the next few days to discuss this visit and any symptoms that change, worsen, or persist. Thank you for allowing us to be part of your care. Stand Alone Forms: Work Release HPI General Mode of arrival: ambulatory . Date/Time Provider Initiated Documentation: 02/10/25 07:39 . Limitations to Documentation: no limitations . Information obtained by: patient and old records reviewed . HPI Narrative: This is a 34-year-old male patient with a past medical history significant for bipolar, polysubstance use disorder in early remission, now staying at a sober house, presenting for evaluation of a lesion inside his nostril. The patient reports that he had a pimple inside his right nostril this morning, he popped it and lots of pus came out. He is presenting to ensure that he does not require antibiotics. The patient reports that he is otherwise in his normal state of health, has not had fevers or chills, changes in oral intake, and is otherwise without acute concerns. Related Data Home Medications ?Medication ?Instructions ?Recorded ?Confirmed methadone (bulk) 100 % powder 200 g miscellaneous PATRICIA Y 07/05/15 02/10/25 miscellaneous medical supply #1 ea 09/05/22 02/10/25 albuterol sulfate 90 mcg/actuation 2 puff inhalation Q 6H PRN #1 g 12/23/23 02/10/25 aerosol inhaler naloxone 4 mg/actuation nasal 4 mg intranasal Q2M PRN #2 ea 12/23/23 02/10/25 spray (Narcan) gabapentin 800 mg tablet 800 mg PO QID 10/12/2402/10 epinephrine 0.3 mg/0.3 mL 0.3 ml subcut ONCE PRN anaph ylaxis 11/21/24 02/10/25 injection, auto-injector #2 ea food supplemt, lactose-reduced See Rx Instructions .Ro [place] 11/21/24 02/10/25 (Ensure Active Protein-Muscle oral .COMPLEX #17,064 mL liquid) divalproex 250 mg tablet,extended 250 mg PO BID #60 ta bs 11/25/24 02/10/25 release 24 hr (Depakote ER) mupirocin 2 % topical ointment 1 applic topical TID 5 days #0 02/10/25 grams Previous Rx's ?Medication ?Instructions ?Recorded miscellaneous medical supply #1 ea 09/05/22 albuterol sulfate 90 mcg/actuation 2 puff inhalation Q 6H PRN #1 g 12/23/23 aerosol inhaler naloxone 4 mg/actuation nasal 4 mg intranasal Q2M PRN #2 ea 12/23/23 spray (Narcan) epinephrine 0.3 mg/0.3 mL 0.3 ml subcut ONCE PRN anaph ylaxis 11/21/24 injection, auto-injector #2 ea food supplemt, lactose-reduced See Rx Instructions .[place] 11/21/24 (Ensure Active Protein-Muscle oral .COMPLEX #17,064 mL liquid) divalproex 250 mg tablet,extended 250 mg PO BID #60 ta bs 11/25/24 release 24 hr (Depakote ER) mupirocin 2 % topical ointment 1 applic topical TID 5 days #0 02/10/25 grams Allergies Allergy/AdvReac Type Severity Reaction Status Date / Time venom-honey bee (bee venom Allergy Severe Anaphylaxsi Verified 02/10/25 07:45 (honey bee)) s General Stated Complaint: Cellulitis ROXANNA: 4 Exam Narrative Exam Narrative: Gen: Awake and alert, in no apparent distress HEENT: Non-icteric sclera, PERRL. The right nare has a small area of scabbing on the lateral aspect, no hemorrhage or active drainage. Externally, the nose is without swelling, redness, or erythema. EOMs are full, no midface tenderness. Neck: Supple Lungs: No apparent respiratory distress, normal respiratory effort. CV: Appears well perfused, strong distal pulses Abdomen: Non-distended MSK: Moves 4 extremities without apparent limitation in ROM Skin: Visualized skin without rashes, cyanosis. Neuro: Normal Gait, no obvious focal deficits or facial asymmetry. Speaks in full, clear sentences. Psych: Appropriate for situation. Course Vital Signs Vital signs: Vital Signs Temperature 37.0 C 02/10/25 07:38 Pulse 101 H 02/10/25 07:38 Respiratory Rate 15 02/10/25 07:38 Blood Pressure 142/83 H 02/10/25 07:38 Pulse Oximetry 100 02/10/25 07:38 Temperature 37.0 C 02/10/25 07:45 Temperature Source Oral 02/10/25 07:45 Pulse 101 H 02/10/25 07:45 Respiratory Rate 15 02/10/25 07:45 Blood Pressure 142/83 H 02/10/25 07:45 Blood Pressure Position Standing 02/10/25 07:45 Pulse Oximetry 100 02/10/25 07:45 Oxygen Delivery Method Room Air 02/10/25 07:45 Oxygen Flow Rate 0 02/10/25 07:45 Pain Level 9 02/10/25 07:45 Medical Decision Making This is a 34-year-old male patient presenting for evaluation after popping a pimple in his nostril. My differential includes but is not limited to superficial skin infection, I certainly note no evidence for severe facial cellulitis, abscess, and have a low concern for systemic infection such as sepsis or bacteremia given the patient's brief duration of symptoms and general well appearance. He is afebrile. I provided the patient with a tube of mupirocin for topical treatment, he does not require oral antibiotics at this time. A referral was placed to establish with a primary care provider. At this time, the patient has had a full medical evaluation and is safe for discharge to home. They are hemodynamically stable, ambulatory, and tolerating PO. They are understanding of the follow-up plan and return precautions. They left our facility without incident. Rosalina Castro MD [facility] All Active Problems (Updated 02/10/25 @ 07:49 by Rosalina Castro MD) Superficial skin infection (Acute) Food insecurity (Acute) Housing insecurity (Acute) Bipolar disorder with psychotic features (Acute) Malnutrition (Acute) Neuropathy (Acute) Bee sting allergy (Acute) ADHD (Acute) PTSD (post-traumatic stress disorder) (Acute) TBI (traumatic brain injury) (Acute) Urethral disorder (Acute) No-show for appointment (Acute) Medical History Rosacea Chronic rhinitis Mood disorder Asthma History of sexually transmitted disease Hep C, chlamydia Tobacco use disorder Illiteracy Mental health disorder Bipolar ?schizophrenia Hepatitis C Opiate dependence IV drug abuse Surgical History Knee Surgery, Right Family History Mother Diabetes Personal history of malignant neoplasm Spine? Father Substance abuse Alcoholism Diabetes Personal history of malignant neoplasm ??? Sister Mental disorder ADHD, bipolar Brother Mental disorder ADHD, bipolar Social History Smoking/Tobacco Use Status: Current every day Tobacco Type: cigarettes Smoking risk assessment performed?: Yes Alcohol Intake: current Alcohol Intake frequency: holidays/special occasions only Alcohol type: hard liquor Drug use: Occasionally Substance use type: former substance user, marijuana, crack/cocaine and heroin Details: daily marijuana/methadone clinic 3 months sober 11/14/24 Housing: apartment Do you feel safe at home: Yes Do you feel safe in your relationship?: Yes
[2025-02-10] MEDS: Mupirocin 2% Oint. 22 GM TUBE TP (07:55)
== END 2025-02-10 08:00 | disposition home or self-care (01) ==
PROVIDERS: Emergency Provider Emergency Medicine
DX: L08.9 Local infection of the skin and subcutaneous tissue, unspecified (principal)
CPT/HCPCS: 99283 ×2

== ENCOUNTER 2025-03-09 13:04 | Emergency (ER) | payer SELFPAY ==
--- NOTE | 2025-03-09 13:00 | DI.RAD_ITS ---
Exam(s) XR PORTABLE CHEST AP EXAM: XR PORTABLE CHEST AP CLINICAL HISTORY: Trauma. TECHNIQUE: 2D digital imaging was performed. COMPARISON: No exams were available for comparison FINDINGS: Single AP portable view. Heart size is upper normal. The mediastinum is not widened. There is bilateral hyperinflation but no confluent infiltrates nor pleural effusions. No fractures. No pneumothorax. IMPRESSION: No acute pulmonary findings on this single AP portable view of the chest. DATA REPOSITORY: RADIATION DOSE DELIVERED:
--- NOTE | 2025-03-09 13:00 | RT.EKG_ITS ---
APPROVED REPORT Exam: Resting ECG Reason for Exam: Syncope Patient Location: E HR:85 bpm ECG Measurements Heart Rate 85 AXIS IA 131 P 86 QRSd 84 QRS 86 QT 385 T 62 QTc 459 Conclusion Sinus rhythm...normal P axis, V-rate 60- 99 No Occlusion DE
[2025-03-09 13:06] VITALS: BP 135/96; PULSE 88; RESP 15; TEMP 37.1; O2SAT 96
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
[2025-03-09 14:42] LABS: Abs Immature Grans 0.11 10^3/uL (0.0-0.06); HCT 41.2 % (40.0-50.0); HGB 13.8 g/dL (13.5-17.5); Immature Grans % 0.9 %; MCH 30.0 pg (27.0-33.0); MCHC 33.5 % (32.0-36.0); MCV 90 fL (80-95); MPV 8.9 fL (8.0-11.0); Platelet Count 288 10^3/uL (130-400); RBC 4.60 10^6/uL (4.36-5.78); RDW 12.5 % (11.8-14.1); RDW-SD 41.2 fL; WBC 12.01 10^3/uL (4.4-10.8)
[2025-03-09 14:56] LABS: Anion Gap 7.4 mmol/L (3-11); BUN 11 mg/dL (7-18); CO2 33.6 mmol/L (21.0-32.0); Calcium 9.2 mg/dL (8.5-10.1); Chloride 99 mmol/L (98-107); Glucose 109 mg/dL (74-106); Potassium 3.9 mmol/L (3.5-5.1); Sodium 140 mmol/L (136-145)
[2025-03-09] MEDS: Nicotine 4 MG GUM CH (15:00)
[2025-03-09 15:05] LABS: Troponin I 8 ng/L (<or=76)
[2025-03-09 16:01] LABS: Troponin I 8 ng/L (<or=76)
== END 2025-03-09 16:13 ==
PROVIDERS: Emergency Provider Emergency Medicine
DX: R52 Pain, unspecified (principal); V49.40XA Driver injured in collision with unspecified motor vehicles in traffic accident, initial encounter
CPT/HCPCS: 99283; 99285; 36415; 36416; 82962; 80048; 93005; 71045; 80320; 84484; 85025; 93010